=== PATIENT | male | born 1955 | race Caucasian/White ===

== ENCOUNTER 2019-09-25 15:13 | Inpatient (IN) | payer MEDICAID ==
[2019-09-25] MEDS ORDERED: HYDROmorphone 0.5 MG/0.5 ML Syringe IVPUSH ONE (15:51)
[2019-09-25] MEDS ORDERED: Ondansetron 4 MG/2 ML SDV IVPUSH ONE (15:51)
[2019-09-25] MEDS ORDERED: Sodium Chloride 0.9% 1,000 ML IV SCH (16:00)
[2019-09-25] MEDS ORDERED: Phenazopyridine 95 MG Tab PO ONE (16:16)
[2019-09-25] MEDS ORDERED: cefTRIAXone 1 GM in Sodium Chloride 0.9% 50 ML IV ONE (16:17)
--- NOTE | 2019-09-25 16:23 | EDM.PDOC ---
ED HPI GENERAL MEDICAL PROBLEM - General Chief Complaint: Gastrointestinal Problem Stated Complaint: THROWING UP Time Seen by Provider: 09/25/19 16:18 Source of Information: Reports: Patient, Family History Limitations: Reports: No Limitations - History of Present Illness INITIAL COMMENTS - FREE TEXT/NARRATIVE: pt is going freqently t urinate. He is burning on urination. He has been chilling but did not have a definite temp taken. Onset: Today Duration: Hour(s): Location: Reports: Abdomen, Other ( burning on urination) Associated Symptoms: Reports: Shortness of Breath, Weakness Headache Pain Score (Numeric/FACES): 9 Lower Back Pain Score (Numeric/FACES): 0 - Related Data Allergies Allergy/AdvReac Type Severity Reaction Status Date / Time No Known Allergies Allergy Verified 09/25/19 15:31 Home Meds: Home Meds Cholecalciferol (Vitamin D3) [Vitamin D] 2,000 unit PO DAILY 07/16/14 [History] Diltiazem HCl [Diltiazem 24Hr Cd] 240 mg PO DAILY 07/16/14 [History] FLUoxetine [PROzac] 20 mg PO DAILY 07/16/14 [History] Lisinopril 40 mg PO DAILY 07/16/14 [History] Omeprazole [Prilosec] 20 mg PO DAILY 07/16/14 [History] Vitamin E 200 unit PO DAILY 07/16/14 [History] Glucosam/Chond/Collagen/Hyalur [Glucosamine Chondroitin] 2 tab PO BID 07/19/14 [ History] [place]-3 Fatty Acids [Fish Oil] 1,000 mg PO DAILY 07/19/14 [History] Gabapentin [Gralise] 600 mg PO QAM 07/15/15 [History] atorvaSTATin Calcium [Atorvastatin Calcium] 1 tab PO BEDTIME 02/28/18 [History] rOPINIRole HCl [Requip] 0.5 mg PO DAILY 02/28/18 [History] Aspirin 81 mg PO DAILY 09/25/19 [History] Etodolac [Lodine] 500 mg PO BID 09/25/19 [History] Gabapentin [Neurontin] 1,200 mg PO BID 09/25/19 [History] Liraglutide [Victoza 3-Parag] 1.2 mg SUBCUT DAILY 09/25/19 [History] Nitroglycerin [Nitrostat] 0.4 mg SL ASDIRECTED PRN 09/25/19 [History] Potassium Gluconate [Potassium] 99 mg PO DAILY 09/25/19 [History] Triamcinolone Acetonide [Triamcinolone Acetonide 0.025%] 1 applic TOP BID PRN [History] metFORMIN HCl [Metformin HCl] 1,000 mg PO BIDAC 09/25/19 [History] Past Medical History HEENT History: Reports: Other (See Below) Other HEENT History: sleep apnea, uses cpap Cardiovascular History: Reports: Arrhythmia, Hypertension Other Cardiovascular History: flutter Respiratory History: Reports: Sleep Apnea Gastrointestinal History: Reports: GERD, Other (See Below) Other Gastrointestinal History: liver enzymes up Genitourinary History: Reports: Renal Calculus Musculoskeletal History: Reports: Arthritis, Back Pain, Chronic, Neck Pain, Chronic, Osteoarthritis, Other (See Below) Other Musculoskeletal History: carpal tunnel. degenerative lumbar and cervicle Neurological History: Reports: Other (See Below) Psychiatric History: Reports: Depression Endocrine/Metabolic History: Reports: Diabetes, Type II, Obesity/BMI 30+ Dermatologic History: Reports: Psoriasis - Infectious Disease History Infectious Disease History: Reports: Chicken Pox, Measles, Mumps - Past Surgical History Cardiovascular Surgical History: Reports: Other (See Below) Other Cardiovascular Surgeries/Procedures: ablasion GI Surgical History: Reports: Hernia Repair/Other Social & Family History - Tobacco Use Smoking Status *Q: Never Smoker - Caffeine Use Caffeine Use: Reports: Coffee - Recreational Drug Use Recreational Drug Use: No ED ROS GENERAL - Review of Systems Review Of Systems: See Below Constitutional: Reports: Fever, Chills, Malaise HEENT: Reports: No Symptoms Respiratory: Reports: Shortness of Breath Cardiovascular: Reports: No Symptoms Endocrine: Reports: Other (pt has been running sugars in the 150 range. d) GI/Abdominal: Reports: No Symptoms : Reports: Dysuria, Frequency, Hematuria, Pain, Urgency Musculoskeletal: Reports: No Symptoms Skin: Reports: No Symptoms ED EXAM, GI/ABD - Physical Exam Exam: See Below Text/Narrative:: pt arrived chilling and having alot of dysuria. Exam Limited By: No Limitations General Appearance: Alert, Anxious, Moderate Distress, Other ( sweaty/ ) Ears: Normal TMs Nose: Normal Inspection Throat/Mouth: Normal Inspection Head: Atraumatic Neck: Normal Inspection Respiratory/Chest: No Respiratory Distress Cardiovascular: Regular Rate, Rhythm, Tachycardia GI/Abdominal Exam: Soft, Non-Tender, Other (mild tenderness over the bladder. ) (Male) Exam: Deferred Rectal (Males) Exam: Deferred Back Exam: Normal Inspection Extremities: Normal Inspection Neurological: Alert, Oriented, Normal Cognition Course - Vital Signs Last Recorded V/S: Last Vital Signs Temp 37.4 C 09/28/19 04:00 Pulse 67 09/28/19 04:00 Resp 18 09/28/19 04:00 BP 140/60 09/28/19 04:00 Pulse Ox 95 09/28/19 04:00 - Orders/Labs/Meds Orders: Medication Orders Acetaminophen (Tylenol) 650 mg PO Q4H PRN PRN Reason: Pain (Mild 1-3)/fever Last Admin: 09/27/19 21:16 Dose: 650 mg Admin: 09/27/19 16:19 Dose: 650 mg Admin: 09/27/19 11:19 Dose: 650 mg Admin: 09/27/19 02:56 Dose: 650 mg Admin: 09/26/19 18:09 Dose: 650 mg Admin: 09/26/19 14:46 Dose: 650 mg Admin: 09/26/19 00:18 Dose: 650 mg Admin: 09/25/19 18:30 Dose: 650 mg Aspirin (Halfprin) 81 mg PO DAILY [facility] Last Admin: 09/27/19 08:52 Dose: 81 mg Admin: 09/26/19 08:31 Dose: 81 mg Atorvastatin Calcium (Lipitor) 20 mg PO BEDTIME [facility] Last Admin: 09/27/19 21:16 Dose: 20 mg Admin: 09/26/19 21:27 Dose: 20 mg Admin: 09/25/19 21:29 Dose: 20 mg Fluoxetine HCl (Prozac) 20 mg PO DAILY [facility] Last Admin: 09/27/19 08:52 Dose: 20 mg Admin: 09/26/19 08:32 Dose: 20 mg Gabapentin (Neurontin) 600 mg PO DAILY@0800 [facility] Last Admin: 09/27/19 07:49 Dose: 600 mg Admin: 09/26/19 08:30 Dose: 600 mg Gabapentin (Neurontin) 1,200 mg PO BID@1400,2100 [facility] Last Admin: 09/27/19 21:16 Dose: 1,200 mg Admin: 09/27/19 14:00 Dose: 1,200 mg Admin: 09/26/19 21:28 Dose: 1,200 mg Admin: 09/26/19 14:39 Dose: 1,200 mg Admin: 09/25/19 21:29 Dose: 1,200 mg Ceftriaxone Sodium 2 gm/ (Sodium Chloride) 50 mls @ 100 mls/hr IV Q24H [facility] Last Admin: 09/27/19 16:19 Dose: 100 mls/hr Admin: 09/26/19 16:20 Dose: 100 mls/hr Sodium Chloride (Normal Saline) 1,000 mls @ 75 mls/hr IV ASDIRECTED [facility] Last Admin: 09/27/19 22:12 Dose: 75 mls/hr Infusion: 09/27/19 21:04 Dose: 75 mls/hr Admin: 09/27/19 07:44 Dose: 75 mls/hr Infusion: 09/27/19 01:02 Dose: 75 mls/hr Admin: 09/26/19 11:42 Dose: 75 mls/hr Ciprofloxacin/Dextrose 400 mg/ (Premix) 200 mls @ 200 mls/hr IV Q12H [facility] Last Admin: 09/28/19 05:03 Dose: 200 mls/hr Infusion: 09/27/19 18:56 Dose: 200 mls/hr Admin: 09/27/19 17:56 Dose: 200 mls/hr Infusion: 09/27/19 06:09 Dose: 200 mls/hr Admin: 09/27/19 05:09 Dose: 200 mls/hr Infusion: 09/26/19 19:11 Dose: 200 mls/hr Admin: 09/26/19 18:11 Dose: 200 mls/hr Sodium Chloride (Normal Saline) 85 mls @ 3.5 mls/sec IV ASDIRECTED [facility] Last Admin: 09/27/19 10:27 Dose: 3.5 mls/sec Lactobacillus Rhamnosus (Culturelle) 1 cap PO BID [facility] Last Admin: 09/27/19 21:15 Dose: 1 cap Admin: 09/27/19 08:52 Dose: 1 cap Admin: 09/26/19 21:27 Dose: 1 cap Admin: 09/26/19 08:31 Dose: 1 cap Admin: 09/25/19 21:29 Dose: 1 cap Liraglutide (Victoza) 1.2 mg SUBCUT DAILY [facility] Last Admin: 09/27/19 08:53 Dose: 1.2 mg Admin: 09/26/19 08:32 Dose: 1.2 units Lorazepam (Ativan) 0.5 mg IVPUSH Q4H PRN PRN Reason: Nausea/Vomiting Magnesium Hydroxide (Milk Of Magnesia) 30 ml PO Q12H PRN PRN Reason: Constipation Melatonin (Melatonin) 9 mg PO BEDTIME PRN PRN Reason: Sleep Last Admin: 09/25/19 21:29 Dose: 9 mg Metformin HCl (Glucophage) 1,000 mg PO BIDAC [facility] Last Admin: 09/27/19 16:20 Dose: 1,000 mg Admin: 09/27/19 07:49 Dose: 1,000 mg Admin: 09/26/19 18:10 Dose: 1,000 mg Admin: 09/26/19 08:30 Dose: 1,000 mg Ondansetron HCl (Zofran Odt) 4 mg PO Q6H PRN PRN Reason: Nausea able to take PO Last Admin: 09/27/19 21:21 Dose: 4 mg Ondansetron HCl (Zofran) 4 mg IV Q6H PRN PRN Reason: Nausea/Vomiting Last Admin: 09/27/19 02:54 Dose: 4 mg Oxycodone HCl (Oxycodone) 5 mg PO Q4H PRN PRN Reason: Pain (moderate 4-6) Last Admin: 09/27/19 21:16 Dose: 5 mg Admin: 09/26/19 00:19 Dose: 5 mg Pantoprazole Sodium (Protonix) 40 mg PO ACBREAKFAST [facility] Last Admin: 09/27/19 07:49 Dose: 40 mg Admin: 09/26/19 08:31 Dose: 40 mg Ropinirole HCl (Requip) 0.5 mg PO BEDTIME [facility] Last Admin: 09/27/19 21:16 Dose: 0.5 mg Admin: 09/26/19 21:28 Dose: 0.5 mg Admin: 09/26/19 00:18 Dose: 0.5 mg Senna/Docusate Sodium (Senna Plus) 1 tab PO BID PRN PRN Reason: Constipation Zolpidem Tartrate (Ambien) 5 mg PO BEDTIME PRN PRN Reason: Sleep Last Admin: 09/27/19 21:16 Dose: 5 mg Admin: 09/26/19 21:27 Dose: 5 mg Labs: Laboratory Tests 09/25/19 09/25/19 09/25/19 Range/Units 15:28 15:30 15:30 WBC 22.4 H (4.5-11.0) K/uL RBC 4.35 (4.30-5.90) M/uL Hgb 13.7 (12.0-15.0) g/dL Hct 41.4 (40.0-54.0) % MCV 95 (80-98) fL MCH 32 H (27-31) pg MCHC 33 (32-36) % Plt Count 225 (150-400) K/uL Neut % (Auto) 78 H (36-66) % Lymph % (Auto) 9 L (24-44) % [place] % (Auto) 12 H (2-6) % Eos % (Auto) 0 L (2-4) % Baso % (Auto) 0 (0-1) % VBG pH (7.350-7.450) Sodium 137 L (140-148) mmol/L Potassium 4.6 (3.6-5.2) mmol/L Chloride 100 (100-108) mmol/L Carbon Dioxide 21 (21-32) mmol/L Anion Gap 20.6 H (5.0-14.0) mmol/L BUN 21 H (7-18) mg/dL Creatinine 1.4 H (0.8-1.3) mg/dL Est Cr Clr Drug Dosing 51.15 mL/min Estimated GFR (MDRD) 51 L (>60) Glucose 156 H (74-106) mg/dL Lactic Acid (0.4-2.0) mmol/L Calcium 9.2 (8.5-10.1) mg/dL Total Bilirubin 1.2 H (0.2-1.0) mg/dL AST 33 (15-37) U/L ALT 52 (12-78) U/L Alkaline Phosphatase 61 (46-116) U/L Total Protein 8.0 (6.4-8.2) g/dL Albumin 3.6 (3.4-5.0) g/dL Globulin 4.4 H (2.3-3.5) g/dL Albumin/Globulin Ratio 0.8 L (1.2-2.2) Urine Color Yellow (YELLOW) Urine Appearance Cloudy A (CLEAR) Urine pH 5.5 (5.0-8.0) Ur Specific [place] >= 1.030 (1.008-1.030) Urine Protein 100 H (NEGATIVE) mg/dL Urine Glucose (UA) Negative (NEGATIVE) mg/dL Urine Ketones 15 H (NEGATIVE) mg/dL Urine Occult Blood Moderate H (NEGATIVE) Urine Nitrite Positive H (NEGATIVE) Urine Bilirubin Large H (NEGATIVE) Urine Urobilinogen 0.2 (0.2-1.0) EU/dL Ur Leukocyte Esterase Small H (NEGATIVE) Urine RBC 10-20 H (0-5) Urine WBC Packed H (0-5) Ur Epithelial Cells Few Amorphous Sediment Not seen Urine Bacteria Many Urine Mucus Few 09/25/19 09/25/19 Range/Units 15:30 15:50 WBC (4.5-11.0) K/uL RBC (4.30-5.90) M/uL Hgb (12.0-15.0) g/dL Hct (40.0-54.0) % MCV (80-98) fL MCH (27-31) pg MCHC (32-36) % Plt Count (150-400) K/uL Neut % (Auto) (36-66) % Lymph % (Auto) (24-44) % [place] % (Auto) (2-6) % Eos % (Auto) (2-4) % Baso % (Auto) (0-1) % VBG pH 7.413 (7.350-7.450) Sodium (140-148) mmol/L Potassium (3.6-5.2) mmol/L Chloride (100-108) mmol/L Carbon Dioxide (21-32) mmol/L Anion Gap (5.0-14.0) mmol/L BUN (7-18) mg/dL Creatinine (0.8-1.3) mg/dL Est Cr Clr Drug Dosing mL/min Estimated GFR (MDRD) (>60) Glucose (74-106) mg/dL Lactic Acid 3.4 H (0.4-2.0) mmol/L Calcium (8.5-10.1) mg/dL Total Bilirubin (0.2-1.0) mg/dL AST (15-37) U/L ALT (12-78) U/L Alkaline Phosphatase (46-116) U/L Total Protein (6.4-8.2) g/dL Albumin (3.4-5.0) g/dL Globulin (2.3-3.5) g/dL Albumin/Globulin Ratio (1.2-2.2) Urine Color (YELLOW) Urine Appearance (CLEAR) Urine pH (5.0-8.0) Ur Specific [place] (1.008-1.030) Urine Protein (NEGATIVE) mg/dL Urine Glucose (UA) (NEGATIVE) mg/dL Urine Ketones (NEGATIVE) mg/dL Urine Occult Blood (NEGATIVE) Urine Nitrite (NEGATIVE) Urine Bilirubin (NEGATIVE) Urine Urobilinogen (0.2-1.0) EU/dL Ur Leukocyte Esterase (NEGATIVE) Urine RBC (0-5) Urine WBC (0-5) Ur Epithelial Cells Amorphous Sediment Urine Bacteria Urine Mucus Meds: Medications Generic Name Dose Route Start Last Admin Trade Name Freq PRN Reason Stop Dose Admin Acetaminophen 650 mg 09/25/19 17:43 09/27/19 21:16 Tylenol PO 650 mg Q4H PRN Administration Pain (Mild 1-3)/fever Aspirin 81 mg 09/26/19 09:00 09/27/19 08:52 Halfprin PO 81 mg DAILY [facility] Administration Atorvastatin Calcium 20 mg 09/25/19 21:00 09/27/19 21:16 Lipitor PO 20 mg BEDTIME [facility] Administration Fluoxetine HCl 20 mg 09/26/19 09:00 09/27/19 08:52 Prozac PO 20 mg DAILY [facility] Administration Gabapentin 600 mg 09/26/19 08:00 09/27/19 07:49 Neurontin PO 600 mg DAILY@0800 [facility] Administration Gabapentin 1,200 mg 09/25/19 21:00 09/27/19 21:16 Neurontin PO 1,200 mg BID@1400,2100 [facility] Administration Ceftriaxone Sodium 2 gm/ 50 mls @ 100 mls/hr 09/26/19 16:00 09/27/19 16:19 Sodium Chloride IV 100 mls/hr Q24H [facility] Administration Sodium Chloride 1,000 mls @ 75 mls/hr 09/26/19 12:00 09/27/19 22:12 Normal Saline IV 75 mls/hr ASDIRECTED [facility] Administration Ciprofloxacin/Dextrose 400 mg/ 200 mls @ 200 mls/hr 09/26/19 17:00 09/28/19 05:03 Premix IV 200 mls/hr Q12H [facility] Administration Sodium Chloride 85 mls @ 3.5 mls/sec 09/27/19 10:00 09/27/19 10:27 Normal Saline IV 3.5 mls/sec ASDIRECTED [facility] Administration Lactobacillus Rhamnosus 1 cap 09/25/19 21:00 09/27/19 21:15 Culturelle PO 1 cap BID [facility] Administration Liraglutide 1.2 mg 09/26/19 09:00 09/27/19 08:53 Victoza SUBCUT 1.2 mg DAILY [facility] Administration Lorazepam 0.5 mg 09/25/19 17:43 Ativan IVPUSH Q4H PRN Nausea/Vomiting Magnesium Hydroxide 30 ml 09/25/19 17:43 Milk Of Magnesia PO Q12H PRN Constipation Melatonin 9 mg 09/25/19 20:25 09/25/19 21:29 Melatonin PO 9 mg BEDTIME PRN Administration Sleep Metformin HCl 1,000 mg 09/26/19 07:30 09/27/19 16:20 Glucophage PO 1,000 mg BIDAC [facility] Administration Ondansetron HCl 4 mg 09/25/19 17:43 09/27/19 21:21 Zofran Odt PO 4 mg Q6H PRN Administration Nausea able to take PO Ondansetron HCl 4 mg 09/25/19 17:43 09/27/19 02:54 Zofran IV 4 mg Q6H PRN Administration Nausea/Vomiting Oxycodone HCl 5 mg 09/25/19 17:43 09/27/19 21:16 Oxycodone PO 5 mg Q4H PRN Administration Pain (moderate 4-6) Pantoprazole Sodium 40 mg 09/26/19 07:30 09/27/19 07:49 Protonix PO 40 mg ACBREAKFAST [facility] Administration Ropinirole HCl 0.5 mg 09/26/19 00:15 09/27/19 21:16 Requip PO 0.5 mg BEDTIME [facility] Administration Senna/Docusate Sodium 1 tab 09/25/19 17:43 Senna Plus PO BID PRN Constipation Zolpidem Tartrate 5 mg 09/26/19 13:06 09/27/19 21:16 Ambien PO 5 mg BEDTIME PRN Administration Sleep Discontinued Medications Generic Name Dose Route Start Last Admin Trade Name Jonathon PRN Reason Stop Dose Admin Hydromorphone HCl 0.5 mg 09/25/19 15:51 09/25/19 16:13 Dilaudid IVPUSH 09/25/19 15:52 0.5 mg ONETIME ONE Administration Sodium Chloride 1,000 mls @ 999 mls/hr 09/25/19 16:00 09/25/19 16:11 Normal Saline IV 999 mls/hr ASDIRECTED [facility] Administration Ceftriaxone Sodium 1 gm/ 50 mls @ 100 mls/hr 09/25/19 16:17 09/25/19 16:32 Sodium Chloride IV 09/25/19 16:46 100 mls/hr ONETIME ONE Administration Lactated Ringer's 1,000 mls @ 999 mls/hr 09/25/19 17:15 09/25/19 18:04 Ringers, Lactated IV 09/25/19 18:16 999 mls/hr ASDIRECTED [facility] Administration Ceftriaxone Sodium 1 gm/ 50 mls @ 100 mls/hr 09/26/19 04:00 09/26/19 04:58 Sodium Chloride IV 09/26/19 04:29 100 mls/hr ONETIME ONE Administration Sodium Chloride 1,000 mls @ 125 mls/hr 09/25/19 17:43 09/26/19 02:49 Normal Saline IV 125 mls/hr ASDIRECTED [facility] Administration Insulin Human Lispro 0 unit 09/25/19 20:00 09/26/19 16:47 Humalog SUBCUT Not Given QIDACANDBED [facility] Protocol Iopamidol 150 ml 09/27/19 09:57 09/27/19 10:26 Isovue-300 (61%) IV 09/27/19 09:58 150 ml ONETIME ONE Administration Ketorolac Tromethamine 30 mg 09/26/19 16:05 09/26/19 16:20 Toradol IVPUSH 09/26/19 16:06 30 mg ONETIME ONE Administration Ondansetron HCl 4 mg 09/25/19 15:51 09/25/19 16:12 Zofran IVPUSH 09/25/19 15:52 4 mg ONETIME ONE Administration Phenazopyridine HCl 190 mg 09/25/19 16:16 09/25/19 16:32 Urinary Pain Relief PO 09/25/19 16:17 190 mg ONETIME ONE Administration Ropinirole HCl 0.5 mg 09/26/19 09:00 Requip PO DAILY [facility] - Re-Assessments/Exams Free Text/Narrative Re-Assessment/Exam: 09/25/19 16:28 pt was just in [place] to see the liver specialist because of a fatty liver. He has had burning on urination for several days. It has been much worse today. 09/25/19 16:29 His wbc is 22,000. His urine is very infected. Pt is septic His lactic acid is elevated. . Departure - Departure Time of Disposition: 16:30 Disposition: Admitted As Inpatient 68 Condition: Fair Clinical Impression: UTI (urinary tract infection), Elevated lactic acid level, Dehydration Sepsis Qualifiers: Sepsis type: sepsis due to unspecified organism Sepsis acute organ dysfunction status: without acute organ dysfunction Qualified Code(s): A41.9 - Sepsis, unspecified organism - Discharge Information Sepsis Event Note - Evaluation Sepsis Screening Result: Possible Sepsis Risk - Focused Exam Date Exam was Performed: 09/28/19 Time Exam was Performed: 07:13
[2019-09-25] MEDS ORDERED: Lactated Ringers 1,000 ML IV SCH (17:15)
--- NOTE | 2019-09-25 17:25 | PCM.HP.2 ---
H&P History of Present Illness - General Date of Service: 09/25/19 Admit Problem/Dx: Admission Diagnosis/Problem Admission Diagnosis/Problem Acute cystitis without hematuria Source of Information: Patient, Family, Provider History Limitations: Reports: No Limitations - History of Present Illness Initial Comments - Free Text/Narative: CC: My penis was burning HPI: Usama presents to the emergency room today with dysuria, fever, chills and nausea with vomiting. He first noticed a fever about 48 hours ago. He had associated shaking chills but no impressive symptoms at that time otherwise. The next morning he developed mild dysuria as well as frequent but small quantity urination. Symptoms progressed over the next 24 hours with worsening dysuria and even smaller quantities of urine were passed. He had some episodes of chilling but no obvious fevers. He developed intermittent nausea with vomiting. He has not had anything to eat in 24 hours. Oral intake has been dramatically reduced compared to baseline. He has had significant fatigue over the past 24 hours. No complaints of abdominal pain. He does feel short of breath but thinks it is mostly because he still tired from the infection. No complaints of headache. He does have a history of a kidney stone that required lithotripsy but this feels much different. No change in bowel habits. No obvious sick contacts. Work-up in the emergency room was suggestive of sepsis secondary to a urinary tract infection. He is dehydrated and has mild acute kidney injury. He has received antibiotics and fluids and will be admitted for further management. Headache Pain Score (Numeric/FACES): 9 - Related Data Allergies/Adverse Reactions: Allergies Allergy/AdvReac Type Severity Reaction Status Date / Time No Known Allergies Allergy Verified 09/25/19 15:31 Home Medications: Home Meds Cholecalciferol (Vitamin D3) [Vitamin D] 2,000 unit PO DAILY 07/16/14 [History] Diltiazem HCl [Diltiazem 24Hr Cd] 240 mg PO DAILY 07/16/14 [History] FLUoxetine [PROzac] 20 mg PO DAILY 07/16/14 [History] Lisinopril 40 mg PO DAILY 07/16/14 [History] Omeprazole [Prilosec] 20 mg PO DAILY 07/16/14 [History] Vitamin E 200 unit PO DAILY 07/16/14 [History] Glucosam/Chond/Collagen/Hyalur [Glucosamine Chondroitin] 2 tab PO BID 12/22/14 [ History] D Hanis-3 Fatty Acids [Fish Oil] 1,000 mg PO DAILY 07/19/14 [History] Gabapentin [Gralise] 600 mg PO QAM 07/15/15 [History] atorvaSTATin Calcium [Atorvastatin Calcium] 1 tab PO BEDTIME 02/28/18 [History] rOPINIRole HCl [Requip] 0.5 mg PO DAILY 02/28/18 [History] Aspirin 81 mg PO DAILY 09/25/19 [History] Etodolac [Lodine] 500 mg PO BID 09/25/19 [History] Gabapentin [Neurontin] 1,200 mg PO BID 09/25/19 [History] Liraglutide [Victoza 3-Parag] 1.2 mg SUBCUT DAILY 09/25/19 [History] Nitroglycerin [Nitrostat] 0.4 mg SL ASDIRECTED PRN 09/25/19 [History] Potassium Gluconate [Potassium] 99 mg PO DAILY 09/25/19 [History] Triamcinolone Acetonide [Triamcinolone Acetonide 0.025%] 1 applic TOP BID PRN [History] metFORMIN HCl [Metformin HCl] 1,000 mg PO BIDAC 09/25/19 [History] Past Medical History HEENT History: Reports: Other (See Below) Other HEENT History: sleep apnea, uses cpap Cardiovascular History: Reports: Arrhythmia, Hypertension Other Cardiovascular History: flutter Respiratory History: Reports: Sleep Apnea Gastrointestinal History: Reports: GERD, Other (See Below) Other Gastrointestinal History: liver enzymes up Genitourinary History: Reports: Renal Calculus Musculoskeletal History: Reports: Arthritis, Back Pain, Chronic, Neck Pain, Chronic, Osteoarthritis, Other (See Below) Other Musculoskeletal History: carpal tunnel. degenerative lumbar and cervicle Neurological History: Reports: Other (See Below) Psychiatric History: Reports: Depression Endocrine/Metabolic History: Reports: Diabetes, Type II, Obesity/BMI 30+ Dermatologic History: Reports: Psoriasis - Infectious Disease History Infectious Disease History: Reports: Chicken Pox, Measles, Mumps - Past Surgical History Cardiovascular Surgical History: Reports: Other (See Below) Other Cardiovascular Surgeries/Procedures: ablasion GI Surgical History: Reports: Hernia Repair/Other Social & Family History - Family History : Reports: Renal Calculus (Brother) - Tobacco Use Smoking Status *Q: Never Smoker - Caffeine Use Caffeine Use: Reports: Coffee - Recreational Drug Use Recreational Drug Use: No H&P Review of Systems - Review of Systems: Review Of Systems: See Below Free Text/Narrative: A complete 12 point review of systems was obtained. Pertinent positives and negatives are noted in the history of present illness. All other systems were reviewed and were negative except as noted. Exam - Exam Exam: See Below - Vital Signs Vital Signs: Last Vital Signs Temp 37.9 C 09/25/19 15:39 Pulse 116 H 09/25/19 15:39 Resp 22 H 09/25/19 15:39 BP 151/62 H 09/25/19 15:39 Pulse Ox 94 L 09/25/19 15:39 Weight: 148 kg - Exam Quality Assessment: No: Supplemental Oxygen General: Alert, Oriented, Cooperative. No: Mild Distress HEENT: Conjunctiva Clear. No: Mucosa Moist & Funk (dry), Scleral Icterus Neck: Supple, Trachea Midline. No: Lymphadenopathy Lungs: Clear to Auscultation, Normal Respiratory Effort Cardiovascular: Regular Rhythm, Tachycardia. No: Systolic Murmur GI/Abdominal Exam: Normal Bowel Sounds, Soft, No Distention, Tender (Mild epigastric) Back Exam: Normal Inspection, Full Range of Motion Extremities: No Pedal Edema. No: Increased Warmth Peripheral Pulses: 1+: Dorsalis Pedis (L), Dorsalis Pedis (R) Skin: Warm, Dry Neuro Extensive - Mental Status: Alert, Oriented x3, Nl Response to Commands Neuro Extensive - Motor, Sensory, Reflexes: No: Dysarthria, Abnormal Motor, Tremor Psychiatric: Alert, Normal Affect - Patient Data Lab Results Last 24 hrs: Laboratory Results - last 24 hr 09/25/19 09/25/19 09/25/19 Range/Units 15:28 15:30 15:30 WBC 22.4 H (4.5-11.0) K/uL RBC 4.35 (4.30-5.90) M/uL Hgb 13.7 (12.0-15.0) g/dL Hct 41.4 (40.0-54.0) % MCV 95 (80-98) fL MCH 32 H (27-31) pg MCHC 33 (32-36) % Plt Count 225 (150-400) K/uL Neut % (Auto) 78 H (36-66) % Lymph % (Auto) 9 L (24-44) % [place] % (Auto) 12 H (2-6) % Eos % (Auto) 0 L (2-4) % Baso % (Auto) 0 (0-1) % VBG pH (7.350-7.450) Sodium 137 L (140-148) mmol/L Potassium 4.6 (3.6-5.2) mmol/L Chloride 100 (100-108) mmol/L Carbon Dioxide 21 (21-32) mmol/L Anion Gap 20.6 H (5.0-14.0) mmol/L BUN 21 H (7-18) mg/dL Creatinine 1.4 H (0.8-1.3) mg/dL Est Cr Clr Drug Dosing 51.15 mL/min Estimated GFR (MDRD) 51 L (>60) Glucose 156 H (74-106) mg/dL Lactic Acid (0.4-2.0) mmol/L Calcium 9.2 (8.5-10.1) mg/dL Total Bilirubin 1.2 H (0.2-1.0) mg/dL AST 33 (15-37) U/L ALT 52 (12-78) U/L Alkaline Phosphatase 61 (46-116) U/L Total Protein 8.0 (6.4-8.2) g/dL Albumin 3.6 (3.4-5.0) g/dL Globulin 4.4 H (2.3-3.5) g/dL Albumin/Globulin Ratio 0.8 L (1.2-2.2) Urine Color Yellow (YELLOW) Urine Appearance Cloudy A (CLEAR) Urine pH 5.5 (5.0-8.0) Ur Specific [place] >= 1.030 (1.008-1.030) Urine Protein 100 H (NEGATIVE) mg/dL Urine Glucose (UA) Negative (NEGATIVE) mg/dL Urine Ketones 15 H (NEGATIVE) mg/dL Urine Occult Blood Moderate H (NEGATIVE) Urine Nitrite Positive H (NEGATIVE) Urine Bilirubin Large H (NEGATIVE) Urine Urobilinogen 0.2 (0.2-1.0) EU/dL Ur Leukocyte Esterase Small H (NEGATIVE) Urine RBC 10-20 H (0-5) Urine WBC Packed H (0-5) Ur Epithelial Cells Few Amorphous Sediment Not seen Urine Bacteria Many Urine Mucus Few 09/25/19 09/25/19 Range/Units 15:30 15:50 WBC (4.5-11.0) K/uL RBC (4.30-5.90) M/uL Hgb (12.0-15.0) g/dL Hct (40.0-54.0) % MCV (80-98) fL MCH (27-31) pg MCHC (32-36) % Plt Count (150-400) K/uL Neut % (Auto) (36-66) % Lymph % (Auto) (24-44) % [place] % (Auto) (2-6) % Eos % (Auto) (2-4) % Baso % (Auto) (0-1) % VBG pH 7.413 (7.350-7.450) Sodium (140-148) mmol/L Potassium (3.6-5.2) mmol/L Chloride (100-108) mmol/L Carbon Dioxide (21-32) mmol/L Anion Gap (5.0-14.0) mmol/L BUN (7-18) mg/dL Creatinine (0.8-1.3) mg/dL Est Cr Clr Drug Dosing mL/min Estimated GFR (MDRD) (>60) Glucose (74-106) mg/dL Lactic Acid 3.4 H (0.4-2.0) mmol/L Calcium (8.5-10.1) mg/dL Total Bilirubin (0.2-1.0) mg/dL AST (15-37) U/L ALT (12-78) U/L Alkaline Phosphatase (46-116) U/L Total Protein (6.4-8.2) g/dL Albumin (3.4-5.0) g/dL Globulin (2.3-3.5) g/dL Albumin/Globulin Ratio (1.2-2.2) Urine Color (YELLOW) Urine Appearance (CLEAR) Urine pH (5.0-8.0) Ur Specific [place] (1.008-1.030) Urine Protein (NEGATIVE) mg/dL Urine Glucose (UA) (NEGATIVE) mg/dL Urine Ketones (NEGATIVE) mg/dL Urine Occult Blood (NEGATIVE) Urine Nitrite (NEGATIVE) Urine Bilirubin (NEGATIVE) Urine Urobilinogen (0.2-1.0) EU/dL Ur Leukocyte Esterase (NEGATIVE) Urine RBC (0-5) Urine WBC (0-5) Ur Epithelial Cells Amorphous Sediment Urine Bacteria Urine Mucus Result Diagrams: 09/25/19 15:30 09/25/19 15:30 Imaging Impressions Last 24 hrs: Chest x-ray-image personally reviewed-lungs are clear with no mass, infiltrate or effusion. Heart size appears normal. Sepsis Event Note - Evaluation Sepsis Screening Result: Possible Sepsis Risk Current Stage of Sepsis: Sepsis Possible Source of Sepsis: Genitourinary - Focused Exam Sepsis Event Note Statement: Focused Sepsis Exam Completed Vital Signs: Vital Signs Temp Pulse Resp BP Pulse Ox 09/25/19 15:39 37.9 C 116 H 22 H 151/62 H 94 L 09/25/19 15:28 37.9 C 116 H 22 H 151/62 H 94 L Respiratory Effort Without Exertion: Other (see below) (Normal) Heart Sounds: Other (see below) (Tachycardia) Capillary Refill, Detail: Less than/Equal to (</=) 2 Seconds Pulse Description: 1+ Thready Peripheral Pulse Location: Dorsalis Pedis Skin Exam (Focused Sepsis): Normal Turgor Date Exam was Performed: 09/25/19 Time Exam was Performed: 17:24 *Q Meaningful Use (ADM) - VTE Risk Assess *Q Each Risk Factor Represents 1 Point: Obesity ( BMI > 25 kg/m2), Sepsis Total Score 1 Point Risk Factors: 2 Each Risk Factor Represents 2 Points: Age 60 - 74 Years Total Score 2 Point Risk Factors: 2 Each Risk Factor Represents 3 Points: None Total Score 3 Point Risk Factors: 0 Each Risk Factor Represents 5 Points: None Total Score 5 Point Risk Factors: 0 Venous Thromboembolism Risk Factor Score *Q: 4 - Problem List (1) Acute cystitis without hematuria SNOMED Code(s): 53020962 ICD Code: N30.00 - ACUTE CYSTITIS WITHOUT HEMATURIA Status: Acute Current Visit: Yes (2) Sepsis SNOMED Code(s): 37812407 ICD Code: A41.9 - SEPSIS, UNSPECIFIED ORGANISM Status: Acute Current Visit: Yes Qualifiers: Sepsis type: sepsis due to unspecified organism Sepsis acute organ dysfunction status: without acute organ dysfunction Qualified Code(s): A41.9 - Sepsis, unspecified organism (3) Type 2 diabetes mellitus, controlled SNOMED Code(s): 79975161, 731122966 ICD Code: E11.9 - TYPE 2 DIABETES MELLITUS WITHOUT COMPLICATIONS Status: Chronic Current Visit: Yes Qualifiers: Diabetes mellitus manager terminal insulin use: without usp use Diabetes mellitus complication status: with neurologic complications Diabetes mellitus complication detail: with polyneuropathy Qualified Code(s): E11.42 - Type 2 diabetes mellitus with diabetic polyneuropathy (4) Essential hypertension SNOMED Code(s): 18871246 ICD Code: I10 - ESSENTIAL (PRIMARY) HYPERTENSION Status: Chronic Current Visit: Yes (5) Morbid obesity with BMI of 50.0-59.9, adult SNOMED Code(s): 035774526, 19038050747560 ICD Code: E66.01 - MORBID (SEVERE) OBESITY DUE TO EXCESS CALORIES; Z68.43 - BODY MASS INDEX (BMI) 50.0-59.9, ADULT Status: Chronic Current Visit: Yes Problem List Initiated/Reviewed/Updated: Yes Orders Last 24hrs: Active Orders 24 hr Category Date Time Status Patient Status Manage Transfer [TRANSFER] Routine ADT 09/25/19 17:09 Ordered Bladder Scan [RC] ASDIRECTED Care 09/25/19 15:30 Active Chest 1V Frontal [CR] Stat Exams 09/25/19 16:19 Taken CULTURE BLOOD [BC] Urgent Lab 09/25/19 16:00 Received CULTURE BLOOD [BC] Urgent Lab 09/25/19 16:05 Received CULTURE URINE [RM] Stat Lab 09/25/19 16:00 Received Lactated Ringers [Ringers, Lactated] 1,000 ml Med 09/25/19 17:15 Active IV ASDIRECTED Sodium Chloride 0.9% [Normal Saline] 1,000 ml Med 09/25/19 16:00 Active IV ASDIRECTED Blood Culture x2 Reflex Set [OM.PC] Urgent Oth 09/25/19 15:50 Ordered Resuscitation Status Routine Resus Stat 09/25/19 17:12 Ordered Medication Orders Sodium Chloride (Normal Saline) 1,000 mls @ 999 mls/hr IV ASDIRECTED SARA Last Admin: 09/25/19 16:11 Dose: 999 mls/hr Lactated Ringer's (Ringers, Lactated) 1,000 mls @ 999 mls/hr IV ASDIRECTED SARA Stop: 09/25/19 18:16 Assessment/Plan Comment:: ASSESSMENT AND PLAN - Acute cystitis without hematuria-complicated by sepsis and dehydration. Evidence for sepsis includes tachycardia and lactic acidosis. 1 previous urinary tract infection associated with a kidney stone but this feels much different. Cultures have been obtained and broad-spectrum antibiotics administered. He is receiving IV fluids. I suspect his recent hyperglycemia led to the urinary tract infection. -Continue IV fluids -Ceftriaxone 1 g in 12 hours and then 2 g every 24 hours -Pain control -Repeat lactic acid this evening -follow-up cultures Type 2 diabetes mellitus-recent increase in medications but this has been fairly well controlled. Blood sugars a little higher in the setting of infection. -Restart metformin tomorrow once lactic acidosis resolves -Continue liraglutide -Sliding scale insulin Essential hypertension-blood pressure normal at this time but I am nervous his blood pressure may drop with sepsis. I am planning to hold his antihypertensives until blood pressure rises. -Hold lisinopril and diltiazem Morbid obesity-BMI greater than 50. Maintenance issues - - DVT prophylaxis -mechanical - GI prophylaxis -PPI - Nutrition -clear liquids for tonight, advance diet once nausea settles down - Berg catheter -not indicated CODE STATUS -full code Admission justification -this patient will be admitted for inpatient services and is medically appropriate meeting medical necessity for inpatient admission as outlined in my documentation. I reasonably expect the patient will require inpatient services that span a period time over 2 midnights. I reasonably expect this patient to be discharged or transferred within 96 hours [facility]. Disposition -I would anticipate discharge home after the hospital stay Dr. Krueger Primary care physician - Atif Davis M.D. - Mortality Measure Prognosis:: Good
--- NOTE | 2019-09-25 17:27 | CRLCR ---
HISTORY: Shortness of breath. Elevated white count. COMPARISON: None available FINDINGS: A portable erect AP view of the chest was obtained at 17 15 hours. The lungs are clear. No focal or diffuse infiltrates are present. The heart is top-normal in size. The mediastinum is normal in appearance. The osseous structures are normal in appearance for the patient`s age. IMPRESSION: Normal portable chest single view. Dictated by Andrey Olivarez MD @ Sep 25 2019 5:24PM Signed by Dr. Andrey Olivarez @ Sep 25 2019 5:25PM
[2019-09-25] MEDS ORDERED: Ondansetron 4 MG Tab.DIS PO PRN (17:43)
[2019-09-25] MEDS ORDERED: LORazepam 2 MG/ML SDV IVPUSH PRN (17:43)
[2019-09-25] MEDS ORDERED: Ondansetron 4 MG/2 ML SDV IV PRN (17:43)
[2019-09-25] MEDS ORDERED: Magnesium Hydroxide 400 MG/5 ML Susp 30 ML Cup PO PRN (17:43)
[2019-09-25] MEDS: Acetaminophen 325 MG Tab PO PRN (18:30)
[2019-09-25] MEDS: Sodium Chloride 0.9% 1,000 ML IV SCH (19:09)
[2019-09-25] MEDS ORDERED: Melatonin 3 MG Tab PO PRN (20:25)
[2019-09-25] MEDS: Insulin Lispro 100 Unit/ML 3 ML KwikPen SUBCUT SCH (21:22)
[2019-09-25] MEDS: Lactobacillus Rhamnosus GG (Probiotic) Cap PO SCH (21:29)
[2019-09-25] MEDS: Gabapentin 400 MG Cap PO SCH (21:29)
[2019-09-25] MEDS: atorvaSTATin 20 MG Tab PO SCH (21:29)
[2019-09-26] MEDS: rOPINIRole 0.5 MG Tab PO SCH ×2 (00:18→21:28)
[2019-09-26] MEDS: Acetaminophen 325 MG Tab PO PRN ×3 (00:18→18:09)
[2019-09-26] MEDS: oxyCODONE 5 MG Tab PO PRN (00:19)
[2019-09-26] MEDS: Sodium Chloride 0.9% 1,000 ML IV SCH ×2 (02:49→11:42)
[2019-09-26] MEDS ORDERED: cefTRIAXone 1 GM in Sodium Chloride 0.9% 50 ML IV ONE (04:00)
[2019-09-26] MEDS: Insulin Lispro 100 Unit/ML 3 ML KwikPen SUBCUT SCH ×3 (08:26→16:47)
[2019-09-26] MEDS: metFORMIN 500 MG Tab PO SCH ×2 (08:30→18:10)
[2019-09-26] MEDS: Gabapentin 300 MG Cap PO SCH (08:30)
[2019-09-26] MEDS: Lactobacillus Rhamnosus GG (Probiotic) Cap PO SCH ×2 (08:31→21:27)
[2019-09-26] MEDS: Pantoprazole 40 MG Tab.CR PO SCH (08:31)
[2019-09-26] MEDS: Aspirin 81 MG Tab.EC PO SCH (08:31)
[2019-09-26] MEDS: Liraglutide (rDNA Origin) 0.6 MG/0.1 ML 3 ML Pen SUBCUT SCH (08:32)
[2019-09-26] MEDS: FLUoxetine 20 MG Cap PO SCH (08:32)
[2019-09-26] MEDS ORDERED: rOPINIRole 0.5 MG Tab PO SCH (09:00)
--- NOTE | 2019-09-26 11:25 | PCM.PN ---
- General Info Date of Service: 09/26/19 Subjective Update: No acute events overnight. No fevers overnight but he did have one early this afternoon. Still having difficulty with urinary urgency and some incontinence. No significant dysuria today. Nausea and vomiting are better. He was able to get in the shower. Appetite slightly better. Vital signs are stable. No abdominal pain. Functional Status: Reports: Pain Controlled, Tolerating Diet - Review of Systems General: Reports: Weakness, Fatigue. Denies: Fever Genitourinary: Reports: Urgency - Patient Data Vitals - Most Recent: Last Vital Signs Temp 36.6 C 09/26/19 08:12 Pulse 72 09/26/19 08:12 Resp 16 09/26/19 08:12 BP 114/60 09/26/19 08:12 Pulse Ox 95 09/26/19 08:12 Weight - Most Recent: 184 kg I&O - Last 24 Hours: Intake & Output 09/25/19 09/26/19 09/26/19 22:59 06:59 14:59 Intake Total 1000 2532 240 Output Total 200 450 200 Balance 800 2082 40 Lab Results Last 24 Hours: Laboratory Results - last 24 hr 09/25/19 09/25/19 09/25/19 Range/Units 15:28 15:30 15:30 WBC 22.4 H (4.5-11.0) K/uL RBC 4.35 (4.30-5.90) M/uL Hgb 13.7 (12.0-15.0) g/dL Hct 41.4 (40.0-54.0) % MCV 95 (80-98) fL MCH 32 H (27-31) pg MCHC 33 (32-36) % Plt Count 225 (150-400) K/uL Neut % (Auto) 78 H (36-66) % Lymph % (Auto) 9 L (24-44) % [place] % (Auto) 12 H (2-6) % Eos % (Auto) 0 L (2-4) % Baso % (Auto) 0 (0-1) % VBG pH (7.350-7.450) Sodium 137 L (140-148) mmol/L Potassium 4.6 (3.6-5.2) mmol/L Chloride 100 (100-108) mmol/L Carbon Dioxide 21 (21-32) mmol/L Anion Gap 20.6 H (5.0-14.0) mmol/L BUN 21 H (7-18) mg/dL Creatinine 1.4 H (0.8-1.3) mg/dL Est Cr Clr Drug Dosing 51.15 mL/min Estimated GFR (MDRD) 51 L (>60) Glucose 156 H (74-106) mg/dL Lactic Acid (0.4-2.0) mmol/L Calcium 9.2 (8.5-10.1) mg/dL Total Bilirubin 1.2 H (0.2-1.0) mg/dL AST 33 (15-37) U/L ALT 52 (12-78) U/L Alkaline Phosphatase 61 (46-116) U/L Total Protein 8.0 (6.4-8.2) g/dL Albumin 3.6 (3.4-5.0) g/dL Globulin 4.4 H (2.3-3.5) g/dL Albumin/Globulin Ratio 0.8 L (1.2-2.2) Urine Color Yellow (YELLOW) Urine Appearance Cloudy A (CLEAR) Urine pH 5.5 (5.0-8.0) Ur Specific [place] >= 1.030 (1.008-1.030) Urine Protein 100 H (NEGATIVE) mg/dL Urine Glucose (UA) Negative (NEGATIVE) mg/dL Urine Ketones 15 H (NEGATIVE) mg/dL Urine Occult Blood Moderate H (NEGATIVE) Urine Nitrite Positive H (NEGATIVE) Urine Bilirubin Large H (NEGATIVE) Urine Urobilinogen 0.2 (0.2-1.0) EU/dL Ur Leukocyte Esterase Small H (NEGATIVE) Urine RBC 10-20 H (0-5) Urine WBC Packed H (0-5) Ur Epithelial Cells Few Amorphous Sediment Not seen Urine Bacteria Many Urine Mucus Few 09/25/19 09/25/19 09/25/19 Range/Units 15:30 15:50 19:57 WBC (4.5-11.0) K/uL RBC (4.30-5.90) M/uL Hgb (12.0-15.0) g/dL Hct (40.0-54.0) % MCV (80-98) fL MCH (27-31) pg MCHC (32-36) % Plt Count (150-400) K/uL Neut % (Auto) (36-66) % Lymph % (Auto) (24-44) % [place] % (Auto) (2-6) % Eos % (Auto) (2-4) % Baso % (Auto) (0-1) % VBG pH 7.413 (7.350-7.450) Sodium (140-148) mmol/L Potassium (3.6-5.2) mmol/L Chloride (100-108) mmol/L Carbon Dioxide (21-32) mmol/L Anion Gap (5.0-14.0) mmol/L BUN (7-18) mg/dL Creatinine (0.8-1.3) mg/dL Est Cr Clr Drug Dosing mL/min Estimated GFR (MDRD) (>60) Glucose (74-106) mg/dL Lactic Acid 3.4 H 1.5 (0.4-2.0) mmol/L Calcium (8.5-10.1) mg/dL Total Bilirubin (0.2-1.0) mg/dL AST (15-37) U/L ALT (12-78) U/L Alkaline Phosphatase (46-116) U/L Total Protein (6.4-8.2) g/dL Albumin (3.4-5.0) g/dL Globulin (2.3-3.5) g/dL Albumin/Globulin Ratio (1.2-2.2) Urine Color (YELLOW) Urine Appearance (CLEAR) Urine pH (5.0-8.0) Ur Specific [place] (1.008-1.030) Urine Protein (NEGATIVE) mg/dL Urine Glucose (UA) (NEGATIVE) mg/dL Urine Ketones (NEGATIVE) mg/dL Urine Occult Blood (NEGATIVE) Urine Nitrite (NEGATIVE) Urine Bilirubin (NEGATIVE) Urine Urobilinogen (0.2-1.0) EU/dL Ur Leukocyte Esterase (NEGATIVE) Urine RBC (0-5) Urine WBC (0-5) Ur Epithelial Cells Amorphous Sediment Urine Bacteria Urine Mucus 09/26/19 09/26/19 Range/Units 05:35 05:35 WBC 18.0 H (4.5-11.0) K/uL RBC 3.73 L (4.30-5.90) M/uL Hgb 11.6 L D (12.0-15.0) g/dL Hct 35.8 L (40.0-54.0) % MCV 96 (80-98) fL MCH 31 (27-31) pg MCHC 32 (32-36) % Plt Count 178 (150-400) K/uL Neut % (Auto) (36-66) % Lymph % (Auto) (24-44) % [place] % (Auto) (2-6) % Eos % (Auto) (2-4) % Baso % (Auto) (0-1) % VBG pH (7.350-7.450) Sodium 137 L (140-148) mmol/L Potassium 3.9 (3.6-5.2) mmol/L Chloride 103 (100-108) mmol/L Carbon Dioxide 22 (21-32) mmol/L Anion Gap 15.9 H (5.0-14.0) mmol/L BUN 16 (7-18) mg/dL Creatinine 1.0 (0.8-1.3) mg/dL Est Cr Clr Drug Dosing 71.61 mL/min Estimated GFR (MDRD) > 60 (>60) Glucose 136 H (74-106) mg/dL Lactic Acid (0.4-2.0) mmol/L Calcium 8.1 L (8.5-10.1) mg/dL Total Bilirubin (0.2-1.0) mg/dL AST (15-37) U/L ALT (12-78) U/L Alkaline Phosphatase (46-116) U/L Total Protein (6.4-8.2) g/dL Albumin (3.4-5.0) g/dL Globulin (2.3-3.5) g/dL Albumin/Globulin Ratio (1.2-2.2) Urine Color (YELLOW) Urine Appearance (CLEAR) Urine pH (5.0-8.0) Ur Specific [place] (1.008-1.030) Urine Protein (NEGATIVE) mg/dL Urine Glucose (UA) (NEGATIVE) mg/dL Urine Ketones (NEGATIVE) mg/dL Urine Occult Blood (NEGATIVE) Urine Nitrite (NEGATIVE) Urine Bilirubin (NEGATIVE) Urine Urobilinogen (0.2-1.0) EU/dL Ur Leukocyte Esterase (NEGATIVE) Urine RBC (0-5) Urine WBC (0-5) Ur Epithelial Cells Amorphous Sediment Urine Bacteria Urine Mucus [place] Results Last 24 Hours: Microbiology 09/25/19 16:00 Urine Culture - Preliminary Urine, Bladder Med Orders - Current: Current Medications Acetaminophen (Tylenol) 650 mg PO Q4H PRN PRN Reason: Pain (Mild 1-3)/fever Last Admin: 09/26/19 00:18 Dose: 650 mg Aspirin (Halfprin) 81 mg PO DAILY [facility] Last Admin: 09/26/19 08:31 Dose: 81 mg Atorvastatin Calcium (Lipitor) 20 mg PO BEDTIME [facility] Last Admin: 09/25/19 21:29 Dose: 20 mg Fluoxetine HCl (Prozac) 20 mg PO DAILY [facility] Last Admin: 09/26/19 08:32 Dose: 20 mg Gabapentin (Neurontin) 600 mg PO DAILY@0800 [facility] Last Admin: 09/26/19 08:30 Dose: 600 mg Gabapentin (Neurontin) 1,200 mg PO BID@1400,2100 [facility] Last Admin: 09/25/19 21:29 Dose: 1,200 mg Ceftriaxone Sodium 2 gm/ (Sodium Chloride) 50 mls @ 100 mls/hr IV Q24H [facility] Insulin Human Lispro (Humalog) 0 unit SUBCUT QIDACANDBED [facility]; Protocol Last Admin: 09/26/19 08:26 Dose: Not Given Lactobacillus Rhamnosus (Culturelle) 1 cap PO BID [facility] Last Admin: 09/26/19 08:31 Dose: 1 cap Liraglutide (Victoza) 1.2 mg SUBCUT DAILY [facility] Last Admin: 09/26/19 08:32 Dose: 1.2 units Lorazepam (Ativan) 0.5 mg IVPUSH Q4H PRN PRN Reason: Nausea/Vomiting Magnesium Hydroxide (Milk Of Magnesia) 30 ml PO Q12H PRN PRN Reason: Constipation Melatonin (Melatonin) 9 mg PO BEDTIME PRN PRN Reason: Sleep Last Admin: 09/25/19 21:29 Dose: 9 mg Metformin HCl (Glucophage) 1,000 mg PO BIDAC [facility] Last Admin: 09/26/19 08:30 Dose: 1,000 mg Ondansetron HCl (Zofran Odt) 4 mg PO Q6H PRN PRN Reason: Nausea able to take PO Ondansetron HCl (Zofran) 4 mg IV Q6H PRN PRN Reason: Nausea/Vomiting Oxycodone HCl (Oxycodone) 5 mg PO Q4H PRN PRN Reason: Pain (moderate 4-6) Last Admin: 09/26/19 00:19 Dose: 5 mg Pantoprazole Sodium (Protonix) 40 mg PO ACBREAKFAST [facility] Last Admin: 09/26/19 08:31 Dose: 40 mg Ropinirole HCl (Requip) 0.5 mg PO BEDTIME [facility] Last Admin: 09/26/19 00:18 Dose: 0.5 mg Senna/Docusate Sodium (Senna Plus) 1 tab PO BID PRN PRN Reason: Constipation Discontinued Medications Hydromorphone HCl (Dilaudid) 0.5 mg IVPUSH ONETIME ONE Stop: 09/25/19 15:52 Last Admin: 09/25/19 16:13 Dose: 0.5 mg Sodium Chloride (Normal Saline) 1,000 mls @ 999 mls/hr IV ASDIRECTED [facility] Last Admin: 09/25/19 16:11 Dose: 999 mls/hr Ceftriaxone Sodium 1 gm/ (Sodium Chloride) 50 mls @ 100 mls/hr IV ONETIME ONE Stop: 09/25/19 16:46 Last Admin: 09/25/19 16:32 Dose: 100 mls/hr Lactated Ringer's (Ringers, Lactated) 1,000 mls @ 999 mls/hr IV ASDIRECTED [facility] Stop: 09/25/19 18:16 Last Admin: 09/25/19 18:04 Dose: 999 mls/hr Ceftriaxone Sodium 1 gm/ (Sodium Chloride) 50 mls @ 100 mls/hr IV ONETIME ONE Stop: 09/26/19 04:29 Last Admin: 09/26/19 04:58 Dose: 100 mls/hr Sodium Chloride (Normal Saline) 1,000 mls @ 125 mls/hr IV ASDIRECTED [facility] Last Admin: 09/26/19 02:49 Dose: 125 mls/hr Ondansetron HCl (Zofran) 4 mg IVPUSH ONETIME ONE Stop: 09/25/19 15:52 Last Admin: 09/25/19 16:12 Dose: 4 mg Phenazopyridine HCl (Urinary Pain Relief) 190 mg PO ONETIME ONE Stop: 09/25/19 16:17 Last Admin: 09/25/19 16:32 Dose: 190 mg Ropinirole HCl (Requip) 0.5 mg PO DAILY SARA - Exam Quality Assessment: No: Supplemental Oxygen General: Alert, Oriented, Cooperative, No Acute Distress Lungs: Normal Respiratory Effort Cardiovascular: Regular Rate, Regular Rhythm GI/Abdominal Exam: Soft, No Distention Extremities: No Pedal Edema Psy/Mental Status: Alert, Normal Affect Sepsis Event Note - Evaluation Sepsis Screening Result: No Definite Risk - Focused Exam Vital Signs: Vital Signs Temp Temp Pulse Resp BP BP Pulse Ox 09/26/19 08:12 36.6 C 72 16 114/60 95 09/26/19 02:48 36.4 C 77 18 103/51 L 95 09/26/19 00:48 36.9 C 09/26/19 00:18 37.5 C Date Exam was Performed: 09/26/19 Time Exam was Performed: 16:57 - Problem List & Annotations (1) Acute cystitis without hematuria SNOMED Code(s): 85816404 Code(s): N30.00 - ACUTE CYSTITIS WITHOUT HEMATURIA Status: Acute Current Visit: Yes (2) Sepsis SNOMED Code(s): 47165155 Code(s): A41.9 - SEPSIS, UNSPECIFIED ORGANISM Status: Acute Current Visit : Yes Qualifiers: Sepsis type: sepsis due to unspecified organism Sepsis acute organ dysfunction status: without acute organ dysfunction Qualified Code(s): A41.9 - Sepsis, unspecified organism (3) Type 2 diabetes mellitus, controlled SNOMED Code(s): 70995540, 955859455 Code(s): E11.9 - TYPE 2 DIABETES MELLITUS WITHOUT COMPLICATIONS Status: Chronic Current Visit: Yes Qualifiers: Diabetes mellitus nursing home insulin use: without nursing home use Diabetes mellitus complication status: with neurologic complications Diabetes mellitus complication detail: with polyneuropathy Qualified Code(s): E11.42 - Type 2 diabetes mellitus with diabetic polyneuropathy (4) Essential hypertension SNOMED Code(s): 57622384 Code(s): I10 - ESSENTIAL (PRIMARY) HYPERTENSION Status: Chronic Current Visit: Yes (5) Morbid obesity with BMI of 50.0-59.9, adult SNOMED Code(s): 138898492, 13047599010321 Code(s): E66.01 - MORBID (SEVERE) OBESITY DUE TO EXCESS CALORIES; Z68.43 - BODY MASS INDEX (BMI) 50.0-59.9, ADULT Status: Chronic Current Visit: Yes - Problem List Review Problem List Initiated/Reviewed/Updated: Yes - My Orders Last 24 Hours: My Active Orders 09/25/19 17:12 Resuscitation Status Routine 09/25/19 17:43 Patient Status [ADT] Routine Antiembolic Devices [RC] .Routine Communication Order [RC] PRN Communication Order [RC] PRN Diabetes Education [RC] Click to Edit Intake and Output [RC] QSHIFT Notify Provider Vital Signs [RC] ASDIRECTED Notify Provider [RC] PRN Oxygen Therapy [RC] PRN Up ad Farrah [RC] ASDIRECTED VTE/DVT Education [RC] Per Unit Routine Vital Signs [RC] Q4H Acetaminophen [Tylenol] 650 mg PO Q4H PRN Docusate Sodium/Sennosides [Senna Plus] 1 tab PO BID PRN LORazepam [Ativan] 0.5 mg IVPUSH Q4H PRN Magnesium Hydroxide [Milk of Magnesia] 30 ml PO Q12H PRN Ondansetron [Zofran ODT] 4 mg PO Q6H PRN Ondansetron [Zofran] 4 mg IV Q6H PRN oxyCODONE 5 mg PO Q4H PRN Sequential Compression Device [OM.PC] Routine 09/25/19 20:00 Insulin Lispro [HumaLOG] See Protocol SUBCUT QIDACANDBED 09/25/19 20:25 Melatonin 9 mg PO BEDTIME PRN 09/25/19 21:00 Gabapentin [Neurontin] 1,200 mg PO BID@1400,2100 Lactobacillus Rhamnosus GG [Culturelle] 1 cap PO BID atorvaSTATin [Lipitor] 20 mg PO BEDTIME 09/26/19 00:15 rOPINIRole [Requip] 0.5 mg PO BEDTIME 09/26/19 07:30 Pantoprazole [ProTONIX] 40 mg PO ACBREAKFAST metFORMIN [Glucophage] 1,000 mg PO BIDAC 09/26/19 08:00 Gabapentin [Neurontin] 600 mg PO DAILY@0800 09/26/19 09:00 Aspirin [Halfprin] 81 mg PO DAILY FLUoxetine [PROzac] 20 mg PO DAILY Liraglutide [Victoza] 1.2 mg SUBCUT DAILY 09/26/19 11:24 Discontinue Telemetry Monitoring [Cardiac Monitoring Discontinue] [RC] Click to Edit 09/26/19 11:30 GLUCOSE POC LAB TO COLLECT [POC] QIDACANDBED 09/26/19 12:00 Sodium Chloride 0.9% [Normal Saline] 1,000 ml IV ASDIRECTED 09/26/19 16:00 cefTRIAXone [Rocephin] 2 gm Sodium Chloride 0.9% [Normal Saline] 50 ml IV Q24H 09/26/19 16:30 GLUCOSE POC LAB TO COLLECT [POC] QIDACANDBED 09/26/19 21:00 GLUCOSE POC LAB TO COLLECT [POC] QIDACANDBED 09/26/19 Lunch Consistent Carbohydrate Diet [DIET] 09/27/19 05:00 BASIC METABOLIC PANEL,BMP [CHEM] Timed CBC W/O DIFF,HEMOGRAM [HEME] Timed (1) 09/27/19 07:30 GLUCOSE POC LAB TO COLLECT [POC] QIDACANDBED 09/27/19 11:30 GLUCOSE POC LAB TO COLLECT [POC] QIDACANDBED 09/27/19 16:30 GLUCOSE POC LAB TO COLLECT [POC] QIDACANDBED 09/27/19 21:00 GLUCOSE POC LAB TO COLLECT [POC] QIDACANDBED 09/28/19 07:30 GLUCOSE POC LAB TO COLLECT [POC] QIDACANDBED 09/28/19 11:30 GLUCOSE POC LAB TO COLLECT [POC] QIDACANDBED 09/28/19 16:30 GLUCOSE POC LAB TO COLLECT [POC] QIDACANDBED 09/28/19 21:00 GLUCOSE POC LAB TO COLLECT [POC] QIDACANDBED 09/29/19 07:30 GLUCOSE POC LAB TO COLLECT [POC] QIDACANDBED 09/29/19 11:30 GLUCOSE POC LAB TO COLLECT [POC] QIDACANDBED 09/29/19 16:30 GLUCOSE POC LAB TO COLLECT [POC] QIDACANDBED 09/29/19 21:00 GLUCOSE POC LAB TO COLLECT [POC] QIDACANDBED 09/30/19 07:30 GLUCOSE POC LAB TO COLLECT [POC] QIDACANDBED - Plan Plan:: ASSESSMENT AND PLAN - Acute cystitis without hematuria-complicated by sepsis and dehydration. Sepsis has resolved. He was febrile this afternoon and he did receive additional antibiotics and a second blood culture was obtained. Feeling a little better but still having difficulty with urgency and incontinence. Urine culture growing a gram-negative alejo but identification is pending. -Continue IV fluids -Ceftriaxone 2 g every 24 hours -Add ciprofloxacin until urine culture is final -Pain control -follow-up cultures Type 2 diabetes mellitus-recent increase in medications but this has been fairly well controlled. Blood sugars acceptable. -Continue metformin -Continue liraglutide -Discontinue sliding scale insulin Essential hypertension-blood pressure acceptable, will continue to hold antihypertensives until blood pressure rises a little further. -Hold lisinopril and diltiazem Morbid obesity-BMI greater than 50. Maintenance issues - - DVT prophylaxis -mechanical - GI prophylaxis -PPI - Nutrition -consistent carbohydrate Disposition -I would anticipate discharge home after the hospital stay Dr. Evans Davis M.D.
[2019-09-26] MEDS: Gabapentin 400 MG Cap PO SCH ×2 (14:39→21:28)
[2019-09-26] MEDS ORDERED: Ketorolac 30 MG/ML SDV IVPUSH ONE (16:05)
[2019-09-26] MEDS: cefTRIAXone 2 GM in Sodium Chloride 0.9% 50 ML IV SCH (16:20)
[2019-09-26] MEDS: Ciprofloxacin in D5W 400 MG in Premix Bag 1 BAG IV SCH ×2 (18:11)
[2019-09-26] MEDS: Zolpidem 5 MG Tab PO PRN (21:27)
[2019-09-26] MEDS: atorvaSTATin 20 MG Tab PO SCH (21:27)
[2019-09-27] MEDS: Acetaminophen 325 MG Tab PO PRN ×4 (02:56→21:16)
[2019-09-27] MEDS: Ciprofloxacin in D5W 400 MG in Premix Bag 1 BAG IV SCH ×4 (05:09→17:56)
[2019-09-27] MEDS: Sodium Chloride 0.9% 1,000 ML IV SCH ×2 (07:44→22:12)
[2019-09-27] MEDS: Pantoprazole 40 MG Tab.CR PO SCH (07:49)
[2019-09-27] MEDS: Gabapentin 300 MG Cap PO SCH (07:49)
[2019-09-27] MEDS: metFORMIN 500 MG Tab PO SCH ×2 (07:49→16:20)
[2019-09-27] MEDS: Aspirin 81 MG Tab.EC PO SCH (08:52)
[2019-09-27] MEDS: FLUoxetine 20 MG Cap PO SCH (08:52)
[2019-09-27] MEDS: Lactobacillus Rhamnosus GG (Probiotic) Cap PO SCH ×2 (08:52→21:15)
[2019-09-27] MEDS: Liraglutide (rDNA Origin) 0.6 MG/0.1 ML 3 ML Pen SUBCUT SCH (08:53)
--- NOTE | 2019-09-27 09:47 | PCM.PN ---
- General Info Date of Service: 09/27/19 Subjective Update: He had a temperature of 103 yesterday afternoon but no acute events overnight. Low-grade fever with some chills this morning. Still has some nausea. Still has some urinary urgency but this is a little better today. He has loose stools today. He is not complaining of any abdominal pain. He gets fatigued fairly quickly whenever he tries to do anything. Still not sleeping well. CT scan of the abdomen and pelvis showed a small nonobstructing stone in the right ureter and mild stranding around the right kidney as well as a thickened bladder with some surrounding stranding. Functional Status: Reports: Pain Controlled - Review of Systems General: Reports: Fever Gastrointestinal: Reports: Diarrhea, Nausea - Patient Data Vitals - Most Recent: Last Vital Signs Temp 37.7 C 09/27/19 07:33 Pulse 72 09/27/19 07:33 Resp 20 09/27/19 07:33 BP 125/60 09/27/19 07:33 Pulse Ox 96 09/27/19 07:33 Weight - Most Recent: 184 kg I&O - Last 24 Hours: Intake & Output 09/26/19 09/27/19 09/27/19 22:59 06:59 14:59 Intake Total 840 778 720 Output Total 250 475 125 Balance 590 303 595 Lab Results Last 24 Hours: Laboratory Results - last 24 hr 09/27/19 09/27/19 Range/Units 05:46 05:46 WBC 11.8 H (4.5-11.0) K/uL RBC 3.93 L (4.30-5.90) M/uL Hgb 12.5 (12.0-15.0) g/dL Hct 36.7 L (40.0-54.0) % MCV 93 (80-98) fL MCH 32 H (27-31) pg MCHC 34 (32-36) % Plt Count 147 L (150-400) K/uL Sodium 135 L (140-148) mmol/L Potassium 5.0 (3.6-5.2) mmol/L Chloride 103 (100-108) mmol/L Carbon Dioxide 18 L (21-32) mmol/L Anion Gap 19.0 H (5.0-14.0) mmol/L BUN 16 (7-18) mg/dL Creatinine 1.1 (0.8-1.3) mg/dL Est Cr Clr Drug Dosing 65.10 mL/min Estimated GFR (MDRD) > 60 (>60) Glucose 150 H (74-106) mg/dL Calcium 7.9 L (8.5-10.1) mg/dL [place] Results Last 24 Hours: Microbiology 09/25/19 16:00 Urine Culture - Final Urine, Bladder Escherichia Coli 09/25/19 16:00 Aerobic Blood Culture - Preliminary Blood - Venous - Iv Start NO GROWTH AFTER 1 DAY Anaerobic Blood Culture - Preliminary NO GROWTH AFTER 1 DAY 09/25/19 16:05 Aerobic Blood Culture - Preliminary Blood - Arm, Right NO GROWTH AFTER 1 DAY Anaerobic Blood Culture - Preliminary NO GROWTH AFTER 1 DAY Med Orders - Current: Current Medications Acetaminophen (Tylenol) 650 mg PO Q4H PRN PRN Reason: Pain (Mild 1-3)/fever Last Admin: 09/27/19 02:56 Dose: 650 mg Aspirin (Halfprin) 81 mg PO DAILY COUNT INCLUDES THE [facility] Last Admin: 09/27/19 08:52 Dose: 81 mg Atorvastatin Calcium (Lipitor) 20 mg PO BEDTIME COUNT INCLUDES THE [facility] Last Admin: 09/26/19 21:27 Dose: 20 mg Fluoxetine HCl (Prozac) 20 mg PO DAILY COUNT INCLUDES [facility] Last Admin: 09/27/19 08:52 Dose: 20 mg Gabapentin (Neurontin) 600 mg PO DAILY@0800 COUNT [facility]CLUD[facility] Last Admin: 09/27/19 07:49 Dose: 600 mg Gabapentin (Neurontin) 1,200 mg PO BID@1400,2100 COUNT [facility]CLUDES [facility] Last Admin: 09/26/19 21:28 Dose: 1,200 mg Ceftriaxone Sodium 2 gm/ (Sodium Chloride) 50 mls @ 100 mls/hr IV Q24H COUNT INCLUDES THE [facility] Last Admin: 09/26/19 16:20 Dose: 100 mls/hr Sodium Chloride (Normal Saline) 1,000 mls @ 75 mls/hr IV ASDIRECTED COUNT INCLUDES THE [facility] Last Admin: 09/27/19 07:44 Dose: 75 mls/hr Ciprofloxacin/Dextrose 400 mg/ (Premix) 200 mls @ 200 mls/hr IV Q12H COUNT INCLUDES [facility] Last Admin: 09/27/19 05:09 Dose: 200 mls/hr Lactobacillus Rhamnosus (Culturelle) 1 cap PO BID COUNT INCLUDES THE [facility] Last Admin: 09/27/19 08:52 Dose: 1 cap Liraglutide (Victoza) 1.2 mg SUBCUT DAILY COUNT INCLUDES [facility] Last Admin: 09/27/19 08:53 Dose: 1.2 mg Lorazepam (Ativan) 0.5 mg IVPUSH Q4H PRN PRN Reason: Nausea/Vomiting Magnesium Hydroxide (Milk Of Magnesia) 30 ml PO Q12H PRN PRN Reason: Constipation Melatonin (Melatonin) 9 mg PO BEDTIME PRN PRN Reason: Sleep Last Admin: 09/25/19 21:29 Dose: 9 mg Metformin HCl (Glucophage) 1,000 mg PO BIDAC COUNT INCLUDES THE [facility] Last Admin: 09/27/19 07:49 Dose: 1,000 mg Ondansetron HCl (Zofran Odt) 4 mg PO Q6H PRN PRN Reason: Nausea able to take PO Ondansetron HCl (Zofran) 4 mg IV Q6H PRN PRN Reason: Nausea/Vomiting Last Admin: 09/27/19 02:54 Dose: 4 mg Oxycodone HCl (Oxycodone) 5 mg PO Q4H PRN PRN Reason: Pain (moderate 4-6) Last Admin: 09/26/19 00:19 Dose: 5 mg Pantoprazole Sodium (Protonix) 40 mg PO ACBREAKFAST COUNT INCLUDES [facility] Last Admin: 09/27/19 07:49 Dose: 40 mg Ropinirole HCl (Requip) 0.5 mg PO BEDTIME COUNT INCLUDES [facility] Last Admin: 09/26/19 21:28 Dose: 0.5 mg Senna/Docusate Sodium (Senna Plus) 1 tab PO BID PRN PRN Reason: Constipation Zolpidem Tartrate (Ambien) 5 mg PO BEDTIME PRN PRN Reason: Sleep Last Admin: 09/26/19 21:27 Dose: 5 mg Discontinued Medications Hydromorphone HCl (Dilaudid) 0.5 mg IVPUSH ONETIME ONE Stop: 09/25/19 15:52 Last Admin: 09/25/19 16:13 Dose: 0.5 mg Sodium Chloride (Normal Saline) 1,000 mls @ 999 mls/hr IV ASDIRECTED COUNT INCLUDES THE [facility] Last Admin: 09/25/19 16:11 Dose: 999 mls/hr Ceftriaxone Sodium 1 gm/ (Sodium Chloride) 50 mls @ 100 mls/hr IV ONETIME ONE Stop: 09/25/19 16:46 Last Admin: 09/25/19 16:32 Dose: 100 mls/hr Lactated Ringer's (Ringers, Lactated) 1,000 mls @ 999 mls/hr IV ASDIRECTED COUNT INCLUDES THE [facility] Stop: 09/25/19 18:16 Last Admin: 09/25/19 18:04 Dose: 999 mls/hr Ceftriaxone Sodium 1 gm/ (Sodium Chloride) 50 mls @ 100 mls/hr IV ONETIME ONE Stop: 09/26/19 04:29 Last Admin: 09/26/19 04:58 Dose: 100 mls/hr Sodium Chloride (Normal Saline) 1,000 mls @ 125 mls/hr IV ASDIRECTED COUNT INCLUDES THE [facility] Last Admin: 09/26/19 02:49 Dose: 125 mls/hr Insulin Human Lispro (Humalog) 0 unit SUBCUT QIDACANDBED COUNT INCLUDES THE [facility]; Protocol Last Admin: 09/26/19 16:47 Dose: Not Given Ketorolac Tromethamine (Toradol) 30 mg IVPUSH ONETIME ONE Stop: 09/26/19 16:06 Last Admin: 09/26/19 16:20 Dose: 30 mg Ondansetron HCl (Zofran) 4 mg IVPUSH ONETIME ONE Stop: 09/25/19 15:52 Last Admin: 09/25/19 16:12 Dose: 4 mg Phenazopyridine HCl (Urinary Pain Relief) 190 mg PO ONETIME ONE Stop: 09/25/19 16:17 Last Admin: 09/25/19 16:32 Dose: 190 mg Ropinirole HCl (Requip) 0.5 mg PO DAILY [facility] - Exam Quality Assessment: No: Supplemental Oxygen General: Alert, Oriented, Cooperative, No Acute Distress Neck: Supple Lungs: Clear to Auscultation, Normal Respiratory Effort Cardiovascular: Regular Rate, Regular Rhythm GI/Abdominal Exam: Normal Bowel Sounds, Soft, Non-Tender, No Distention Extremities: No Pedal Edema. No: Increased Warmth Skin: Warm, Dry Psy/Mental Status: Alert, Normal Affect Sepsis Event Note - Evaluation Sepsis Screening Result: No Definite Risk - Focused Exam Vital Signs: Vital Signs Temp Temp Pulse Resp BP Pulse Ox 09/27/19 07:33 37.7 C 72 20 125/60 96 09/27/19 02:56 37.7 C 09/27/19 02:54 37.7 C 03/01/20 01:20 37.4 C 84 20 125/88 97 Date Exam was Performed: 09/27/19 Time Exam was Performed: 13:18 - Problem List & Annotations (1) Acute cystitis without hematuria SNOMED Code(s): 07836978 Code(s): N30.00 - ACUTE CYSTITIS WITHOUT HEMATURIA Status: Acute Current Visit: Yes (2) Sepsis SNOMED Code(s): 64434294 Code(s): A41.9 - SEPSIS, UNSPECIFIED ORGANISM Status: Acute Current Visit : Yes Qualifiers: Sepsis type: sepsis due to unspecified organism Sepsis acute organ dysfunction status: without acute organ dysfunction Qualified Code(s): A41.9 - Sepsis, unspecified organism (3) Type 2 diabetes mellitus, controlled SNOMED Code(s): 02976282, 511219688 Code(s): E11.9 - TYPE 2 DIABETES MELLITUS WITHOUT COMPLICATIONS Status: Chronic Current Visit: Yes Qualifiers: Diabetes mellitus medical terminologist insulin use: without correction use Diabetes mellitus complication status: with neurologic complications Diabetes mellitus complication detail: with polyneuropathy Qualified Code(s): E11.42 - Type 2 diabetes mellitus with diabetic polyneuropathy (4) Essential hypertension SNOMED Code(s): 22613603 Code(s): I10 - ESSENTIAL (PRIMARY) HYPERTENSION Status: Chronic Current Visit: Yes (5) Morbid obesity with BMI of 50.0-59.9, adult SNOMED Code(s): 039891719, 47500396585223 Code(s): E66.01 - MORBID (SEVERE) OBESITY DUE TO EXCESS CALORIES; Z68.43 - BODY MASS INDEX (BMI) 50.0-59.9, ADULT Status: Chronic Current Visit: Yes - Problem List Review Problem List Initiated/Reviewed/Updated: Yes - My Orders Last 24 Hours: My Active Orders 09/26/19 09:00 Aspirin [Halfprin] 81 mg PO DAILY FLUoxetine [PROzac] 20 mg PO DAILY Liraglutide [Victoza] 1.2 mg SUBCUT DAILY 09/26/19 12:00 Sodium Chloride 0.9% [Normal Saline] 1,000 ml IV ASDIRECTED 09/26/19 13:06 Zolpidem [Ambien] 5 mg PO BEDTIME PRN 09/26/19 16:00 cefTRIAXone [Rocephin] 2 gm Sodium Chloride 0.9% [Normal Saline] 50 ml IV Q24H 02/29/20 16:15 CULTURE BLOOD [BC] Urgent 09/26/19 17:00 Ciprofloxacin in D5W [Cipro in D5W 400 MG/200 ML] 400 mg Premix Bag 1 bag IV Q12H 09/26/19 Lunch Consistent Carbohydrate Diet [DIET] 09/27/19 03:38 CPAP Noctural Home [RT BiPAP/CPAP] [RC] ASDIRECTED 09/27/19 09:46 Abdomen Pelvis w Cont [CT] Routine 09/27/19 11:30 GLUCOSE POC LAB TO COLLECT [POC] QIDACANDBED 09/27/19 16:30 GLUCOSE POC LAB TO COLLECT [POC] QIDACANDBED 09/27/19 21:00 GLUCOSE POC LAB TO COLLECT [POC] QIDACANDBED 09/28/19 05:00 BASIC METABOLIC PANEL,BMP [CHEM] Timed CBC W/O DIFF,HEMOGRAM [HEME] Timed (1) 09/28/19 07:30 GLUCOSE POC LAB TO COLLECT [POC] QIDACANDBED 09/28/19 11:30 GLUCOSE POC LAB TO COLLECT [POC] QIDACANDBED 09/28/19 16:30 GLUCOSE POC LAB TO COLLECT [POC] QIDACANDBED 09/28/19 21:00 GLUCOSE POC LAB TO COLLECT [POC] QIDACANDBED 09/29/19 07:30 GLUCOSE POC LAB TO COLLECT [POC] QIDACANDBED 09/29/19 11:30 GLUCOSE POC LAB TO COLLECT [POC] QIDACANDBED 09/29/19 16:30 GLUCOSE POC LAB TO COLLECT [POC] QIDACANDBED 09/29/19 21:00 GLUCOSE POC LAB TO COLLECT [POC] QIDACANDBED 09/30/19 07:30 GLUCOSE POC LAB TO COLLECT [POC] QIDACANDBED - Plan Plan:: ASSESSMENT AND PLAN - Acute cystitis without hematuria-complicated by sepsis and dehydration. Sepsis has resolved. Significant fever yesterday afternoon and low-grade fever overnight. CT scan showed strong evidence for acute cystitis. He does have a right ureteral stone but no evidence for obstruction. Feeling a little better today and his urinary urgency is a little better. -Continue IV fluids -Continue ceftriaxone and ciprofloxacin for 1 more day then transition to monotherapy -Pain control -follow-up cultures Type 2 diabetes mellitus-Blood sugars acceptable. -Continue metformin -Continue liraglutide Essential hypertension-blood pressure acceptable, will continue to hold antihypertensives until blood pressure rises a little further. -Hold lisinopril and diltiazem, reassess in the morning Morbid obesity-BMI greater than 50. Maintenance issues - - DVT prophylaxis -mechanical - GI prophylaxis -PPI - Nutrition -consistent carbohydrate Disposition -I would anticipate discharge home after the hospital stay Atif Davis M.D.
[2019-09-27] MEDS ORDERED: Iopamidol 500 ML BOTTLE IV ONE (09:57)
--- NOTE | 2019-09-27 11:07 | CRLCT ---
INDICATION: fever, vomiting, diarrhea, complicated UTI Indication: Fever. Vomiting. Diarrhea. Complicated UTI. Technique: CT of the abdomen and pelvis. 150 cc of Isovue-300 IV. Coronal/sagittal reconstruction images. Comparison: None. Findings: Lung bases: No pleural or pericardial effusion. The heart size is normal. Interstitial type opacities are present at both lung bases. This is likely atelectasis or scarring. 6 millimeter left lower lobe pulmonary nodule on image 18, series 2. There is no basilar pneumothorax. Abdomen/pelvis: Diffuse hepatic steatosis. No solid hepatic mass. No perihepatic ascites. No inflammatory changes adjacent to the gallbladder. The spleen size is normal. No pancreatic mass or pancreatic duct dilation. No glandular atrophy. Benign left renal cyst. This measures 32 millimeters in dimension. There is either a 4 millimeter stone or contrast in the right intrarenal collecting system on image 83, series 2. Minor perinephric fat stranding. Mild thickening of the urinary bladder wall, with stranding in the extraperitoneal space of Retzius. This consistent with the history. There is colonic diverticulosis. There is no evidence for diverticulitis. There is no pneumatosis. There is no portal venous gas. There is no mural stratification. There is no bowel obstruction. There is an umbilical hernia containing fat. There is no enteric compromise. The defect measures 2 centimeters in transverse dimension. There is no adenopathy by size criteria in the pelvis, retroperitoneum, or gastrohepatic ligament. The celiac axis, SMA, and LUANN are patent. The bone windows demonstrate degenerative changes of the symphysis pubis. There are no suspicious bone lesions by CT. There are degenerative changes present at the endplates throughout the lower thoracic and lumbar spine. The vertebral body heights are maintained on sagittal reconstruction images. Impression: 1. Perinephric fat stranding, but no obstructive urolith, hydronephrosis, or striated nephrogram. 2. Fat stranding surrounding the urinary bladder and extraperitoneal space of Retzius, along with bladder wall thickening. This is consistent with the history of UTI. 3. 6 millimeter left lower lobe pulmonary nodule. Follow-up is suggested per Fleischner society guidelines. 4. No abdominal or pelvic lymphadenopathy by size criteria. Dictated by Patel Chavez MD @ 09/27/2019 11:06:23 AM Please note that all CT scans at this facility use dose modulation, iterative reconstruction, and/or weight-based dosing when appropriate to reduce radiation dose to as low as reasonably achievable. Dictated by: Patel Chavez MD @ 09/27/2019 11:06:38 (Electronically Signed)
[2019-09-27] MEDS: Gabapentin 400 MG Cap PO SCH ×2 (14:00→21:16)
[2019-09-27] MEDS: cefTRIAXone 2 GM in Sodium Chloride 0.9% 50 ML IV SCH (16:19)
[2019-09-27] MEDS: oxyCODONE 5 MG Tab PO PRN (21:16)
[2019-09-27] MEDS: atorvaSTATin 20 MG Tab PO SCH (21:16)
[2019-09-27] MEDS: Zolpidem 5 MG Tab PO PRN (21:16)
[2019-09-27] MEDS: rOPINIRole 0.5 MG Tab PO SCH (21:16)
[2019-09-28] MEDS: Ciprofloxacin in D5W 400 MG in Premix Bag 1 BAG IV SCH ×4 (05:03→16:21)
[2019-09-28] MEDS: Gabapentin 300 MG Cap PO SCH (07:49)
[2019-09-28] MEDS: metFORMIN 500 MG Tab PO SCH ×2 (07:49→16:21)
[2019-09-28] MEDS: Pantoprazole 40 MG Tab.CR PO SCH (07:49)
[2019-09-28] MEDS: Acetaminophen 325 MG Tab PO PRN ×2 (08:02→15:06)
[2019-09-28] MEDS: FLUoxetine 20 MG Cap PO SCH (08:05)
[2019-09-28] MEDS: Lactobacillus Rhamnosus GG (Probiotic) Cap PO SCH ×2 (08:05→22:02)
[2019-09-28] MEDS: Liraglutide (rDNA Origin) 0.6 MG/0.1 ML 3 ML Pen SUBCUT SCH (08:06)
[2019-09-28] MEDS: Aspirin 81 MG Tab.EC PO SCH (08:06)
--- NOTE | 2019-09-28 12:47 | PCM.PN ---
- General Info Date of Service: 09/28/19 Subjective Update: There were no acute events overnight. He did have a low-grade fever but not as high as the day before. He did have some nausea yesterday evening but this has resolved. No complaints of abdominal pain. No vomiting. Diarrhea is better today. Urinary urgency is better today. Oral intake has been improving. No new positive culture results. Blood sugars fairly well controlled. Functional Status: Reports: Pain Controlled - Review of Systems General: Reports: Fever Gastrointestinal: Reports: Nausea. Denies: Abdominal Pain - Patient Data Vitals - Most Recent: Last Vital Signs Temp 36.7 C 09/28/19 08:12 Pulse 70 09/28/19 10:01 Resp 18 09/28/19 10:01 BP 153/66 H 09/28/19 10:01 Pulse Ox 94 L 09/28/19 10:01 Weight - Most Recent: 148 kg I&O - Last 24 Hours: Intake & Output 09/27/19 09/28/19 09/28/19 22:59 06:59 14:59 Intake Total 1466 955 120 Output Total 225 500 200 Balance 1241 455 -80 Lab Results Last 24 Hours: Laboratory Results - last 24 hr 09/28/19 09/28/19 Range/Units 05:00 06:29 WBC 7.9 (4.5-11.0) K/uL RBC 3.83 L (4.30-5.90) M/uL Hgb 12.3 (12.0-15.0) g/dL Hct 36.0 L (40.0-54.0) % MCV 94 (80-98) fL MCH 32 H (27-31) pg MCHC 34 (32-36) % Plt Count 202 (150-400) K/uL Sodium 134 L (140-148) mmol/L Potassium 4.7 (3.6-5.2) mmol/L Chloride 102 (100-108) mmol/L Carbon Dioxide 20 L (21-32) mmol/L Anion Gap 16.7 H (5.0-14.0) mmol/L BUN 11 (7-18) mg/dL Creatinine 0.9 (0.8-1.3) mg/dL Est Cr Clr Drug Dosing 79.56 mL/min Estimated GFR (MDRD) > 60 (>60) Glucose 156 H (74-106) mg/dL Calcium 8.2 L (8.5-10.1) mg/dL [place] Results Last 24 Hours: Microbiology 09/26/19 16:15 Aerobic Blood Culture - Preliminary Blood - Arm, Right NO GROWTH AFTER 1 DAY Anaerobic Blood Culture - Preliminary NO GROWTH AFTER 1 DAY 09/25/19 16:05 Aerobic Blood Culture - Preliminary Blood - Arm, Right NO GROWTH AFTER 2 DAYS Anaerobic Blood Culture - Preliminary NO GROWTH AFTER 2 DAYS 09/25/19 16:00 Aerobic Blood Culture - Preliminary Blood - Venous - Iv Start NO GROWTH AFTER 2 DAYS Anaerobic Blood Culture - Preliminary NO GROWTH AFTER 2 DAYS Med Orders - Current: Current Medications Acetaminophen (Tylenol) 650 mg PO Q4H PRN PRN Reason: Pain (Mild 1-3)/fever Last Admin: 09/28/19 08:02 Dose: 650 mg Aspirin (Halfprin) 81 mg PO DAILY [facility] Last Admin: 09/28/19 08:06 Dose: 81 mg Atorvastatin Calcium (Lipitor) 20 mg PO BEDTIME [facility] Last Admin: 09/27/19 21:16 Dose: 20 mg Fluoxetine HCl (Prozac) 20 mg PO DAILY [facility] Last Admin: 09/28/19 08:05 Dose: 20 mg Gabapentin (Neurontin) 600 mg PO DAILY@0800 [facility] Last Admin: 09/28/19 07:49 Dose: 600 mg Gabapentin (Neurontin) 1,200 mg PO BID@1400,2100 [facility] Last Admin: 09/27/19 21:16 Dose: 1,200 mg Ciprofloxacin/Dextrose 400 mg/ (Premix) 200 mls @ 200 mls/hr IV Q12H [facility] Last Admin: 09/28/19 05:03 Dose: 200 mls/hr Lactobacillus Rhamnosus (Culturelle) 1 cap PO BID [facility] Last Admin: 09/28/19 08:05 Dose: 1 cap Liraglutide (Victoza) 1.2 mg SUBCUT DAILY [facility] Last Admin: 09/28/19 08:06 Dose: 1.2 mg Lorazepam (Ativan) 0.5 mg IVPUSH Q4H PRN PRN Reason: Nausea/Vomiting Magnesium Hydroxide (Milk Of Magnesia) 30 ml PO Q12H PRN PRN Reason: Constipation Melatonin (Melatonin) 9 mg PO BEDTIME PRN PRN Reason: Sleep Last Admin: 09/25/19 21:29 Dose: 9 mg Metformin HCl (Glucophage) 1,000 mg PO BIDAC [facility] Last Admin: 09/28/19 07:49 Dose: 1,000 mg Ondansetron HCl (Zofran Odt) 4 mg PO Q6H PRN PRN Reason: Nausea able to take PO Last Admin: 09/27/19 21:21 Dose: 4 mg Ondansetron HCl (Zofran) 4 mg IV Q6H PRN PRN Reason: Nausea/Vomiting Last Admin: 09/27/19 02:54 Dose: 4 mg Oxycodone HCl (Oxycodone) 5 mg PO Q4H PRN PRN Reason: Pain (moderate 4-6) Last Admin: 09/27/19 21:16 Dose: 5 mg Pantoprazole Sodium (Protonix) 40 mg PO ACBREAKFAST [facility] Last Admin: 09/28/19 07:49 Dose: 40 mg Ropinirole HCl (Requip) 0.5 mg PO BEDTIME [facility] Last Admin: 09/27/19 21:16 Dose: 0.5 mg Senna/Docusate Sodium (Senna Plus) 1 tab PO BID PRN PRN Reason: Constipation Zolpidem Tartrate (Ambien) 5 mg PO BEDTIME PRN PRN Reason: Sleep Last Admin: 09/27/19 21:16 Dose: 5 mg Discontinued Medications Hydromorphone HCl (Dilaudid) 0.5 mg IVPUSH ONETIME ONE Stop: 09/25/19 15:52 Last Admin: 09/25/19 16:13 Dose: 0.5 mg Sodium Chloride (Normal Saline) 1,000 mls @ 999 mls/hr IV ASDIRECTED [facility] Last Admin: 09/25/19 16:11 Dose: 999 mls/hr Ceftriaxone Sodium 1 gm/ (Sodium Chloride) 50 mls @ 100 mls/hr IV ONETIME ONE Stop: 09/25/19 16:46 Last Admin: 09/25/19 16:32 Dose: 100 mls/hr Lactated Ringer's (Ringers, Lactated) 1,000 mls @ 999 mls/hr IV ASDIRECTED [facility] Stop: 09/25/19 18:16 Last Admin: 09/25/19 18:04 Dose: 999 mls/hr Ceftriaxone Sodium 1 gm/ (Sodium Chloride) 50 mls @ 100 mls/hr IV ONETIME ONE Stop: 09/26/19 04:29 Last Admin: 09/26/19 04:58 Dose: 100 mls/hr Ceftriaxone Sodium 2 gm/ (Sodium Chloride) 50 mls @ 100 mls/hr IV Q24H [facility] Last Admin: 09/27/19 16:19 Dose: 100 mls/hr Sodium Chloride (Normal Saline) 1,000 mls @ 125 mls/hr IV ASDIRECTED [facility] Last Admin: 09/26/19 02:49 Dose: 125 mls/hr Sodium Chloride (Normal Saline) 1,000 mls @ 75 mls/hr IV ASDIRECTED [facility] Last Admin: 09/27/19 22:12 Dose: 75 mls/hr Sodium Chloride (Normal Saline) 85 mls @ 3.5 mls/sec IV ASDIRECTED [facility] Last Admin: 09/27/19 10:27 Dose: 3.5 mls/sec Insulin Human Lispro (Humalog) 0 unit SUBCUT QIDACANDBED [facility]; Protocol Last Admin: 09/26/19 16:47 Dose: Not Given Iopamidol (Isovue-300 (61%)) 150 ml IV ONETIME ONE Stop: 09/27/19 09:58 Last Admin: 09/27/19 10:26 Dose: 150 ml Ketorolac Tromethamine (Toradol) 30 mg IVPUSH ONETIME ONE Stop: 09/26/19 16:06 Last Admin: 09/26/19 16:20 Dose: 30 mg Ondansetron HCl (Zofran) 4 mg IVPUSH ONETIME ONE Stop: 09/25/19 15:52 Last Admin: 09/25/19 16:12 Dose: 4 mg Phenazopyridine HCl (Urinary Pain Relief) 190 mg PO ONETIME ONE Stop: 09/25/19 16:17 Last Admin: 09/25/19 16:32 Dose: 190 mg Ropinirole HCl (Requip) 0.5 mg PO DAILY [facility] - Exam Quality Assessment: No: Supplemental Oxygen General: Alert, Oriented, Cooperative, No Acute Distress Lungs: Normal Respiratory Effort GI/Abdominal Exam: Soft, No Distention Extremities: No Pedal Edema Skin: Warm, Dry Psy/Mental Status: Alert, Normal Affect Sepsis Event Note - Evaluation Sepsis Screening Result: No Definite Risk - Focused Exam Vital Signs: Vital Signs Temp Pulse Pulse Resp BP BP Pulse Ox 09/28/19 10:01 70 18 153/66 H 94 L 09/28/19 08:12 36.7 C 63 16 145/68 H 09/28/19 04:00 37.4 C 67 18 140/60 95 Date Exam was Performed: 09/28/19 Time Exam was Performed: 12:42 - Problem List & Annotations (1) Acute cystitis without hematuria SNOMED Code(s): 41075081 Code(s): N30.00 - ACUTE CYSTITIS WITHOUT HEMATURIA Status: Acute Current Visit: Yes (2) Sepsis SNOMED Code(s): 78732111 Code(s): A41.9 - SEPSIS, UNSPECIFIED ORGANISM Status: Acute Current Visit : Yes Qualifiers: Sepsis type: sepsis due to unspecified organism Sepsis acute organ dysfunction status: without acute organ dysfunction Qualified Code(s): A41.9 - Sepsis, unspecified organism (3) Type 2 diabetes mellitus, controlled SNOMED Code(s): 37538448, 109169970 Code(s): E11.9 - TYPE 2 DIABETES MELLITUS WITHOUT COMPLICATIONS Status: Chronic Current Visit: Yes Qualifiers: Diabetes mellitus mcc insulin use: without ferry terminal agent use Diabetes mellitus complication status: with neurologic complications Diabetes mellitus complication detail: with polyneuropathy Qualified Code(s): E11.42 - Type 2 diabetes mellitus with diabetic polyneuropathy (4) Essential hypertension SNOMED Code(s): 33379603 Code(s): I10 - ESSENTIAL (PRIMARY) HYPERTENSION Status: Chronic Current Visit: Yes (5) Morbid obesity with BMI of 50.0-59.9, adult SNOMED Code(s): 222443626, 68863689620698 Code(s): E66.01 - MORBID (SEVERE) OBESITY DUE TO EXCESS CALORIES; Z68.43 - BODY MASS INDEX (BMI) 50.0-59.9, ADULT Status: Chronic Current Visit: Yes - Problem List Review Problem List Initiated/Reviewed/Updated: Yes - My Orders Last 24 Hours: My Active Orders 09/28/19 12:39 Convert IV to Saline Lock [OM.PC] Routine 09/28/19 16:30 GLUCOSE POC LAB TO COLLECT [POC] QIDACANDBED 09/28/19 21:00 GLUCOSE POC LAB TO COLLECT [POC] QIDACANDBED 09/29/19 05:00 BASIC METABOLIC PANEL,BMP [CHEM] Timed CBC W/O DIFF,HEMOGRAM [HEME] Timed (1) 09/29/19 07:30 GLUCOSE POC LAB TO COLLECT [POC] QIDACANDBED 09/29/19 11:30 GLUCOSE POC LAB TO COLLECT [POC] QIDACANDBED 09/29/19 16:30 GLUCOSE POC LAB TO COLLECT [POC] QIDACANDBED 09/29/19 21:00 GLUCOSE POC LAB TO COLLECT [POC] QIDACANDBED 09/30/19 07:30 GLUCOSE POC LAB TO COLLECT [POC] QIDACANDBED - Plan Plan:: ASSESSMENT AND PLAN - Acute cystitis without hematuria-complicated by sepsis and dehydration. Sepsis has resolved. Curve trending down and symptomatically he is starting to feel better. Nausea is better. No abdominal pain. No positive blood cultures. -Saline lock IV -Continue ciprofloxacin -Discontinue ceftriaxone -Pain control -follow-up cultures Type 2 diabetes mellitus-Blood sugars acceptable. -Continue metformin -Continue liraglutide Essential hypertension-blood pressure acceptable, will continue to hold antihypertensives 1 more day but will restart tomorrow. -Hold lisinopril and diltiazem, restart in the morning Morbid obesity-BMI greater than 50. Maintenance issues - - DVT prophylaxis -mechanical - GI prophylaxis -PPI - Nutrition -consistent carbohydrate Disposition -I would anticipate discharge home after the hospital stay, likely tomorrow if stable overnight Atif Davis M.D.
[2019-09-28] MEDS: Gabapentin 400 MG Cap PO SCH ×2 (14:09→22:03)
[2019-09-28] MEDS: Lisinopril 20 MG Tab PO SCH (14:09)
[2019-09-28] MEDS: oxyCODONE 5 MG Tab PO PRN (22:00)
[2019-09-28] MEDS: Zolpidem 5 MG Tab PO PRN (22:01)
[2019-09-28] MEDS: atorvaSTATin 20 MG Tab PO SCH (22:03)
[2019-09-28] MEDS: rOPINIRole 0.5 MG Tab PO SCH (22:03)
[2019-09-29] MEDS: oxyCODONE 5 MG Tab PO PRN ×2 (05:36→21:49)
[2019-09-29] MEDS: Ciprofloxacin in D5W 400 MG in Premix Bag 1 BAG IV SCH ×4 (05:38→18:18)
[2019-09-29] MEDS: Gabapentin 300 MG Cap PO SCH (08:07)
[2019-09-29] MEDS: Lactobacillus Rhamnosus GG (Probiotic) Cap PO SCH ×2 (08:10→21:42)
[2019-09-29] MEDS: metFORMIN 500 MG Tab PO SCH ×2 (08:10→16:19)
[2019-09-29] MEDS: Pantoprazole 40 MG Tab.CR PO SCH (08:10)
[2019-09-29] MEDS: Diltiazem 120 MG Cap.CD PO SCH (08:10)
[2019-09-29] MEDS: Aspirin 81 MG Tab.EC PO SCH (08:10)
[2019-09-29] MEDS: Lisinopril 20 MG Tab PO SCH (08:12)
[2019-09-29] MEDS: FLUoxetine 20 MG Cap PO SCH (08:13)
[2019-09-29] MEDS: Liraglutide (rDNA Origin) 0.6 MG/0.1 ML 3 ML Pen SUBCUT SCH (08:14)
[2019-09-29] MEDS: Gabapentin 400 MG Cap PO SCH ×2 (12:59→21:42)
--- NOTE | 2019-09-29 14:40 | PCM.PN ---
- General Info Date of Service: 09/29/19 Subjective Update: Mr. Zaldivar has shown further improvement in the last 24 hours, he has remained afebrile with good improvement in appetite. Still somewhat weak and unsteady with ambulation. Functional Status: Reports: Tolerating Diet, Ambulating, Urinating - Review of Systems General: Reports: Weakness, Fatigue. Denies: Fever, Chills Pulmonary: Reports: No Symptoms Cardiovascular: Reports: No Symptoms Gastrointestinal: Reports: No Symptoms Genitourinary: Reports: No Symptoms - Patient Data Vitals - Most Recent: Last Vital Signs Temp 97.3 F 09/29/19 10:22 Pulse 57 L 09/29/19 10:22 Resp 18 09/29/19 10:22 BP 134/53 L 09/29/19 10:22 Pulse Ox 95 09/29/19 10:22 Weight - Most Recent: 326 lb 4.546 oz I&O - Last 24 Hours: Intake & Output 09/28/19 09/29/19 09/29/19 22:59 06:59 14:59 Intake Total 700 600 720 Output Total 800 Balance 700 -200 720 Lab Results Last 24 Hours: Laboratory Results - last 24 hr 09/29/19 09/29/19 Range/Units 05:00 05:00 WBC 8.4 (4.5-11.0) K/uL RBC 3.74 L (4.30-5.90) M/uL Hgb 11.7 L (12.0-15.0) g/dL Hct 34.6 L (40.0-54.0) % MCV 93 (80-98) fL MCH 31 (27-31) pg MCHC 34 (32-36) % Plt Count 219 (150-400) K/uL Sodium 139 L (140-148) mmol/L Potassium 4.2 (3.6-5.2) mmol/L Chloride 103 (100-108) mmol/L Carbon Dioxide 24 (21-32) mmol/L Anion Gap 16.2 H (5.0-14.0) mmol/L BUN 11 (7-18) mg/dL Creatinine 0.9 (0.8-1.3) mg/dL Est Cr Clr Drug Dosing 79.37 mL/min Estimated GFR (MDRD) > 60 (>60) Glucose 136 H (74-106) mg/dL Calcium 8.6 (8.5-10.1) mg/dL [place] Results Last 24 Hours: Microbiology 09/26/19 16:15 Aerobic Blood Culture - Preliminary Blood - Arm, Right NO GROWTH AFTER 2 DAYS Anaerobic Blood Culture - Preliminary NO GROWTH AFTER 2 DAYS 09/25/19 16:05 Aerobic Blood Culture - Preliminary Blood - Arm, Right NO GROWTH AFTER 3 DAYS Anaerobic Blood Culture - Preliminary NO GROWTH AFTER 3 DAYS 09/25/19 16:00 Aerobic Blood Culture - Preliminary Blood - Venous - Iv Start NO GROWTH AFTER 3 DAYS Anaerobic Blood Culture - Preliminary NO GROWTH AFTER 3 DAYS Med Orders - Current: Current Medications Acetaminophen (Tylenol) 650 mg PO Q4H PRN PRN Reason: Pain (Mild 1-3)/fever Last Admin: 09/28/19 15:06 Dose: 650 mg Aspirin (Halfprin) 81 mg PO DAILY [facility] Last Admin: 09/29/19 08:10 Dose: 81 mg Atorvastatin Calcium (Lipitor) 20 mg PO BEDTIME [facility] Last Admin: 09/28/19 22:03 Dose: 20 mg Diltiazem HCl (Cardizem Cd) 240 mg PO DAILY [facility] Last Admin: 09/29/19 08:10 Dose: 240 mg Fluoxetine HCl (Prozac) 20 mg PO DAILY [facility] Last Admin: 09/29/19 08:13 Dose: 20 mg Gabapentin (Neurontin) 600 mg PO DAILY@0800 [facility] Last Admin: 09/29/19 08:07 Dose: 600 mg Gabapentin (Neurontin) 1,200 mg PO BID@1400,2100 [facility] Last Admin: 09/29/19 12:59 Dose: 1,200 mg Ciprofloxacin/Dextrose 400 mg/ (Premix) 200 mls @ 200 mls/hr IV Q12H [facility] Last Admin: 09/29/19 05:38 Dose: 200 mls/hr Lactobacillus Rhamnosus (Culturelle) 1 cap PO BID [facility] Last Admin: 09/29/19 08:10 Dose: 1 cap Liraglutide (Victoza) 1.2 mg SUBCUT DAILY [facility] Last Admin: 09/29/19 08:14 Dose: 1.2 mg Lisinopril (Prinivil) 40 mg PO DAILY [facility] Last Admin: 09/29/19 08:12 Dose: 40 mg Lorazepam (Ativan) 0.5 mg IVPUSH Q4H PRN PRN Reason: Nausea/Vomiting Magnesium Hydroxide (Milk Of Magnesia) 30 ml PO Q12H PRN PRN Reason: Constipation Melatonin (Melatonin) 9 mg PO BEDTIME PRN PRN Reason: Sleep Last Admin: 09/25/19 21:29 Dose: 9 mg Metformin HCl (Glucophage) 1,000 mg PO BIDAC [facility] Last Admin: 09/29/19 08:10 Dose: 1,000 mg Ondansetron HCl (Zofran Odt) 4 mg PO Q6H PRN PRN Reason: Nausea able to take PO Last Admin: 09/27/19 21:21 Dose: 4 mg Ondansetron HCl (Zofran) 4 mg IV Q6H PRN PRN Reason: Nausea/Vomiting Last Admin: 09/27/19 02:54 Dose: 4 mg Oxycodone HCl (Oxycodone) 5 mg PO Q4H PRN PRN Reason: Pain (moderate 4-6) Last Admin: 09/29/19 05:36 Dose: 5 mg Pantoprazole Sodium (Protonix) 40 mg PO ACBREAKFAST [facility] Last Admin: 09/29/19 08:10 Dose: 40 mg Ropinirole HCl (Requip) 0.5 mg PO BEDTIME [facility] Last Admin: 09/28/19 22:03 Dose: 0.5 mg Senna/Docusate Sodium (Senna Plus) 1 tab PO BID PRN PRN Reason: Constipation Zolpidem Tartrate (Ambien) 5 mg PO BEDTIME PRN PRN Reason: Sleep Last Admin: 09/28/19 22:01 Dose: 5 mg Discontinued Medications Hydromorphone HCl (Dilaudid) 0.5 mg IVPUSH ONETIME ONE Stop: 09/25/19 15:52 Last Admin: 09/25/19 16:13 Dose: 0.5 mg Sodium Chloride (Normal Saline) 1,000 mls @ 999 mls/hr IV ASDIRECTED [facility] Last Admin: 09/25/19 16:11 Dose: 999 mls/hr Ceftriaxone Sodium 1 gm/ (Sodium Chloride) 50 mls @ 100 mls/hr IV ONETIME ONE Stop: 09/25/19 16:46 Last Admin: 09/25/19 16:32 Dose: 100 mls/hr Lactated Ringer's (Ringers, Lactated) 1,000 mls @ 999 mls/hr IV ASDIRECTED [facility] Stop: 09/25/19 18:16 Last Admin: 09/25/19 18:04 Dose: 999 mls/hr Ceftriaxone Sodium 1 gm/ (Sodium Chloride) 50 mls @ 100 mls/hr IV ONETIME ONE Stop: 09/26/19 04:29 Last Admin: 09/26/19 04:58 Dose: 100 mls/hr Ceftriaxone Sodium 2 gm/ (Sodium Chloride) 50 mls @ 100 mls/hr IV Q24H [facility] Last Admin: 09/27/19 16:19 Dose: 100 mls/hr Sodium Chloride (Normal Saline) 1,000 mls @ 125 mls/hr IV ASDIRECTED [facility] Last Admin: 09/26/19 02:49 Dose: 125 mls/hr Sodium Chloride (Normal Saline) 1,000 mls @ 75 mls/hr IV ASDIRECTED [facility] Last Admin: 09/27/19 22:12 Dose: 75 mls/hr Sodium Chloride (Normal Saline) 85 mls @ 3.5 mls/sec IV ASDIRECTED [facility] Last Admin: 09/27/19 10:27 Dose: 3.5 mls/sec Insulin Human Lispro (Humalog) 0 unit SUBCUT QIDACANDBED [facility]; Protocol Last Admin: 09/26/19 16:47 Dose: Not Given Iopamidol (Isovue-300 (61%)) 150 ml IV ONETIME ONE Stop: 09/27/19 09:58 Last Admin: 09/27/19 10:26 Dose: 150 ml Ketorolac Tromethamine (Toradol) 30 mg IVPUSH ONETIME ONE Stop: 09/26/19 16:06 Last Admin: 09/26/19 16:20 Dose: 30 mg Ondansetron HCl (Zofran) 4 mg IVPUSH ONETIME ONE Stop: 09/25/19 15:52 Last Admin: 09/25/19 16:12 Dose: 4 mg Phenazopyridine HCl (Urinary Pain Relief) 190 mg PO ONETIME ONE Stop: 09/25/19 16:17 Last Admin: 09/25/19 16:32 Dose: 190 mg Ropinirole HCl (Requip) 0.5 mg PO DAILY [facility] - Exam Quality Assessment: DVT Prophylaxis General: Alert, Oriented, Cooperative, Mild Distress Lungs: Clear to Auscultation, Normal Respiratory Effort Cardiovascular: Regular Rate, Regular Rhythm, No Murmurs GI/Abdominal Exam: Soft, Non-Tender, No Organomegaly, No Distention Extremities: Non-Tender, No Pedal Edema Sepsis Event Note - Evaluation Sepsis Screening Result: No Definite Risk - Focused Exam Vital Signs: Vital Signs Temp Pulse Pulse Pulse Resp BP BP 09/29/19 10:22 97.3 F 57 L 18 09/29/19 08:19 97.5 F 59 L 18 09/29/19 08:12 138/62 09/29/19 08:10 59 L 138/62 09/29/19 04:00 98.8 F 53 L 14 154/66 H BP Pulse Ox 09/29/19 10:22 134/53 L 95 09/29/19 08:19 138/62 95 09/29/19 08:12 09/29/19 08:10 09/29/19 04:00 95 Date Exam was Performed: 09/29/19 Time Exam was Performed: 14:38 - Problem List Review Problem List Initiated/Reviewed/Updated: Yes - Plan Plan:: ASSESSMENT AND PLAN - Acute cystitis without hematuria-complicated by sepsis and dehydration. Sepsis has resolved. Afebrile for 24 hours, appetite improved. Urine culture growing pansensitive E. coli -Saline lock IV -Continue ciprofloxacin Type 2 diabetes mellitus-Blood sugars acceptable. -Continue metformin -Continue liraglutide Essential hypertension-blood pressure acceptable, will continue to hold antihypertensives 1 more day but will restart tomorrow. -Hold lisinopril and diltiazem, restart in the morning Morbid obesity-BMI greater than 50. Maintenance issues - - DVT prophylaxis -mechanical - GI prophylaxis -PPI - Nutrition -consistent carbohydrate Disposition -I would anticipate discharge home tomorrow
[2019-09-29] MEDS: rOPINIRole 0.5 MG Tab PO SCH (21:44)
[2019-09-29] MEDS: atorvaSTATin 20 MG Tab PO SCH (21:44)
[2019-09-29] MEDS: Zolpidem 5 MG Tab PO PRN (21:49)
[2019-09-30] MEDS: Ciprofloxacin in D5W 400 MG in Premix Bag 1 BAG IV SCH ×2 (05:38)
[2019-09-30 08:00] VITALS: BP 143/63; PULSE 57
[2019-09-30] MEDS: Pantoprazole 40 MG Tab.CR PO SCH (08:02)
[2019-09-30] MEDS: metFORMIN 500 MG Tab PO SCH (08:02)
[2019-09-30] MEDS: Gabapentin 300 MG Cap PO SCH (08:02)
[2019-09-30] MEDS: Diltiazem 120 MG Cap.CD PO SCH (08:03)
[2019-09-30] MEDS: Lactobacillus Rhamnosus GG (Probiotic) Cap PO SCH (08:03)
[2019-09-30] MEDS: FLUoxetine 20 MG Cap PO SCH (08:04)
[2019-09-30] MEDS: Lisinopril 20 MG Tab PO SCH (08:04)
[2019-09-30] MEDS: Aspirin 81 MG Tab.EC PO SCH (08:04)
[2019-09-30] MEDS: Liraglutide (rDNA Origin) 0.6 MG/0.1 ML 3 ML Pen SUBCUT SCH (08:05)
--- NOTE | 2019-09-30 10:56 | PCM.DCSUM1 ---
Discharge Summary - Hospital Course Brief History: Mr. Zaldivar a 64-year-old gentleman who was admitted through the emergency department with weakness, dehydration, fever, secondary to underlying complicated urinary tract infection with sepsis. - Discharge Data Discharge Date: 09/30/19 Discharge Disposition: Home, Self-Care 01 Condition: Stable - Referral to Home Health Primary Care Physician: Gustabo Krueger MD - Discharge Diagnosis/Problem(s) (1) Acute cystitis without hematuria SNOMED Code(s): 34024731 ICD Code: N30.00 - ACUTE CYSTITIS WITHOUT HEMATURIA Status: Acute Current Visit: Yes (2) Dehydration SNOMED Code(s): 81305557 ICD Code: E86.0 - DEHYDRATION Status: Acute Current Visit: Yes (3) Elevated lactic acid level SNOMED Code(s): 4377539 ICD Code: R79.89 - OTHER SPECIFIED ABNORMAL FINDINGS OF BLOOD CHEMISTRY Status: Acute Current Visit: Yes (4) Sepsis SNOMED Code(s): 57278286 ICD Code: A41.9 - SEPSIS, UNSPECIFIED ORGANISM Status: Acute Current Visit: Yes Qualifiers: Sepsis type: sepsis due to unspecified organism Sepsis acute organ dysfunction status: without acute organ dysfunction Qualified Code(s): A41.9 - Sepsis, unspecified organism (5) Morbid obesity with BMI of 50.0-59.9, adult SNOMED Code(s): 277468704, 45588404953262 ICD Code: E66.01 - MORBID (SEVERE) OBESITY DUE TO EXCESS CALORIES; Z68.43 - BODY MASS INDEX (BMI) 50.0-59.9, ADULT Status: Chronic Current Visit: Yes (6) Type 2 diabetes mellitus, controlled SNOMED Code(s): 85589314, 243427602 ICD Code: E11.9 - TYPE 2 DIABETES MELLITUS WITHOUT COMPLICATIONS Status: Chronic Current Visit: Yes Qualifiers: Diabetes mellitus termite control technician insulin use: without termite control technician use Diabetes mellitus complication status: with neurologic complications Diabetes mellitus complication detail: with polyneuropathy Qualified Code(s): E11.42 - Type 2 diabetes mellitus with diabetic polyneuropathy - Patient Summary/Data Hospital Course: Mr. Zaldivar presented to the emergency room with dysuria, fever, chills and nausea with vomiting. He first noticed a fever about 48 hours prior to admission. He had associated shaking chills but no impressive symptoms at that time otherwise. The next morning he developed mild dysuria as well as frequent but small quantity urination. Symptoms progressed over the next 24 hours with worsening dysuria and even smaller quantities of urine were passed. He had some episodes of chilling but no obvious fevers. He developed intermittent nausea with vomiting. He has not had anything to eat in 24 hours. Oral intake has been dramatically reduced compared to baseline. He has had significant fatigue over the past 24 hours. Work-up in the emergency room was suggestive of sepsis secondary to a urinary tract infection. He is dehydrated and has mild acute kidney injury. He has received antibiotics and fluids and will be admitted for further management. On admission he was treated with ceftriaxone as well as given IV fluids per sepsis protocol. Over the next few days of hospitalization he gradually improved. CT scan of the abdomen showed stranding about the kidneys as well as around the bladder. Sepsis resolved and he remained hemodynamically stable with resolution of his mild lactic acidosis. Appetite gradually improved and by the time of discharge he was up and ambulating without significant difficulty. Culture grew out E. coli and he was transitioned to oral antibiotic therapy with ciprofloxacin. He will complete another 3 days of oral antibiotic therapy after discharge. Follow-up appointment will be scheduled with his primary care provider within 1 week. Glucose levels were monitored throughout his hospital stay for management of his type 2 diabetes mellitus. Activity will be as tolerated and he will remain on a diabetic diet. - Patient Instructions Diet: Diabetic Diet Activity: As Tolerated Other/Special Instructions: FU appt w/ primary care provider w/in 1 week - Discharge Plan *PRESCRIPTION DRUG MONITORING PROGRAM REVIEWED*: Not Applicable *COPY OF PRESCRIPTION DRUG MONITORING REPORT IN PATIENT STELLA: Not Applicable Prescriptions/Med Rec: Ciprofloxacin HCl [Cipro] 500 mg PO BID #6 tablet Lactobacillus Rhamnosus GG [Culturelle] 1 cap PO BID #60 cap Home Medications: Home Meds Cholecalciferol (Vitamin D3) [Vitamin D3] 2,000 unit PO DAILY 07/16/14 [History] Diltiazem HCl [Diltiazem 24Hr Cd] 240 mg PO DAILY 07/16/14 [History] FLUoxetine [PROzac] 20 mg PO DAILY 07/16/14 [History] Lisinopril 40 mg PO DAILY 07/16/14 [History] Omeprazole [Prilosec] 20 mg PO DAILY 07/16/14 [History] Vitamin E 200 unit PO DAILY 07/16/14 [History] Glucosam/Chond/Collagen/Hyalur [Glucosamine Chondroitin] 2 tab PO BID 07/19/14 [ History] [place]-3 Fatty Acids [Fish Oil] 1,000 mg PO DAILY 07/19/14 [History] Gabapentin [Gralise] 600 mg PO QAM 07/15/15 [History] atorvaSTATin Calcium [Atorvastatin Calcium] 1 tab PO BEDTIME 02/28/18 [History] rOPINIRole HCl [Requip] 0.5 mg PO DAILY 02/28/18 [History] Aspirin 81 mg PO DAILY 09/25/19 [History] Etodolac [Lodine] 500 mg PO BID 09/25/19 [History] Gabapentin [Neurontin] 1,200 mg PO BID 09/25/19 [History] Liraglutide [Victoza] 1.2 mg SUBCUT DAILY 09/25/19 [History] Nitroglycerin [Nitrostat] 0.4 mg SL ASDIRECTED PRN 09/25/19 [History] Potassium Gluconate [Potassium] 99 mg PO DAILY 09/25/19 [History] Triamcinolone Acetonide [Triamcinolone Acetonide 0.025%] 1 applic TOP BID PRN [History] metFORMIN HCl [Metformin HCl] 1,000 mg PO BIDAC 09/25/19 [History] Ciprofloxacin HCl [Cipro] 500 mg PO BID #6 tablet 09/30/19 [Rx] Lactobacillus Rhamnosus GG [Culturelle] 1 cap PO BID #60 cap 09/30/19 [Rx] Patient Handouts: Urinary Tract Infection, Adult, [id number] Referrals: Gustabo Krueger MD [Primary Care Provider] - 10/05/19 10:30 am ([place] at clinic front office spec 15 minutes prior to appointment ) - Discharge Summary/Plan Comment DC Time >30 min.: No - Patient Data Vitals - Most Recent: Last Vital Signs Temp 97.3 F 09/30/19 07:58 Pulse 57 L 09/30/19 08:03 Resp 16 09/30/19 07:58 BP 143/63 H 09/30/19 08:04 Pulse Ox 93 L 09/30/19 07:58 Weight - Most Recent: 326 lb 4.546 oz I&O - Last 24 hours: Intake & Output 03/0309/30/19 09/30/19 22:59 06:59 14:59 Intake Total 290 200 Output Total 1000 Balance 290 -800 [place] Results - Last 24 hrs: Microbiology 09/26/19 16:15 Aerobic Blood Culture - Preliminary Blood - Arm, Right NO GROWTH AFTER 3 DAYS Anaerobic Blood Culture - Preliminary NO GROWTH AFTER 3 DAYS 09/25/19 16:00 Aerobic Blood Culture - Preliminary Blood - Venous - Iv Start NO GROWTH AFTER 4 DAYS Anaerobic Blood Culture - Preliminary NO GROWTH AFTER 4 DAYS 09/25/19 16:05 Aerobic Blood Culture - Preliminary Blood - Arm, Right NO GROWTH AFTER 4 DAYS Anaerobic Blood Culture - Preliminary NO GROWTH AFTER 4 DAYS Med Orders - Current: Current Medications Acetaminophen (Tylenol) 650 mg PO Q4H PRN PRN Reason: Pain (Mild 1-3)/fever Last Admin: 09/28/19 15:06 Dose: 650 mg Aspirin (Halfprin) 81 mg PO DAILY [facility] Last Admin: 09/30/19 08:04 Dose: 81 mg Atorvastatin Calcium (Lipitor) 20 mg PO BEDTIME [facility] Last Admin: 09/29/19 21:44 Dose: 20 mg Diltiazem HCl (Cardizem Cd) 240 mg PO DAILY [facility] Last Admin: 09/30/19 08:03 Dose: 240 mg Fluoxetine HCl (Prozac) 20 mg PO DAILY [facility] Last Admin: 09/30/19 08:04 Dose: 20 mg Gabapentin (Neurontin) 600 mg PO DAILY@0800 [facility] Last Admin: 09/30/19 08:02 Dose: 600 mg Gabapentin (Neurontin) 1,200 mg PO BID@1400,2100 [facility] Last Admin: 09/29/19 21:42 Dose: 1,200 mg Ciprofloxacin/Dextrose 400 mg/ (Premix) 200 mls @ 200 mls/hr IV Q12H [facility] Last Admin: 09/30/19 05:38 Dose: 200 mls/hr Lactobacillus Rhamnosus (Culturelle) 1 cap PO BID [facility] Last Admin: 09/30/19 08:03 Dose: 1 cap Liraglutide (Victoza) 1.2 mg SUBCUT DAILY [facility] Last Admin: 09/30/19 08:05 Dose: 1.2 mg Lisinopril (Prinivil) 40 mg PO DAILY [facility] Last Admin: 09/30/19 08:04 Dose: 40 mg Lorazepam (Ativan) 0.5 mg IVPUSH Q4H PRN PRN Reason: Nausea/Vomiting Magnesium Hydroxide (Milk Of Magnesia) 30 ml PO Q12H PRN PRN Reason: Constipation Melatonin (Melatonin) 9 mg PO BEDTIME PRN PRN Reason: Sleep Last Admin: 09/25/19 21:29 Dose: 9 mg Metformin HCl (Glucophage) 1,000 mg PO BIDAC [facility] Last Admin: 09/30/19 08:02 Dose: 1,000 mg Ondansetron HCl (Zofran Odt) 4 mg PO Q6H PRN PRN Reason: Nausea able to take PO Last Admin: 09/27/19 21:21 Dose: 4 mg Ondansetron HCl (Zofran) 4 mg IV Q6H PRN PRN Reason: Nausea/Vomiting Last Admin: 09/27/19 02:54 Dose: 4 mg Oxycodone HCl (Oxycodone) 5 mg PO Q4H PRN PRN Reason: Pain (moderate 4-6) Last Admin: 09/29/19 21:49 Dose: 5 mg Pantoprazole Sodium (Protonix) 40 mg PO ACBREAKFAST [facility] Last Admin: 09/30/19 08:02 Dose: 40 mg Ropinirole HCl (Requip) 0.5 mg PO BEDTIME [facility] Last Admin: 09/29/19 21:44 Dose: 0.5 mg Senna/Docusate Sodium (Senna Plus) 1 tab PO BID PRN PRN Reason: Constipation Zolpidem Tartrate (Ambien) 5 mg PO BEDTIME PRN PRN Reason: Sleep Last Admin: 09/29/19 21:49 Dose: 5 mg Discontinued Medications Hydromorphone HCl (Dilaudid) 0.5 mg IVPUSH ONETIME ONE Stop: 09/25/19 15:52 Last Admin: 09/25/19 16:13 Dose: 0.5 mg Sodium Chloride (Normal Saline) 1,000 mls @ 999 mls/hr IV ASDIRECTED [facility] Last Admin: 09/25/19 16:11 Dose: 999 mls/hr Ceftriaxone Sodium 1 gm/ (Sodium Chloride) 50 mls @ 100 mls/hr IV ONETIME ONE Stop: 09/25/19 16:46 Last Admin: 09/25/19 16:32 Dose: 100 mls/hr Lactated Ringer's (Ringers, Lactated) 1,000 mls @ 999 mls/hr IV ASDIRECTED [facility] Stop: 09/25/19 18:16 Last Admin: 09/25/19 18:04 Dose: 999 mls/hr Ceftriaxone Sodium 1 gm/ (Sodium Chloride) 50 mls @ 100 mls/hr IV ONETIME ONE Stop: 09/26/19 04:29 Last Admin: 09/26/19 04:58 Dose: 100 mls/hr Ceftriaxone Sodium 2 gm/ (Sodium Chloride) 50 mls @ 100 mls/hr IV Q24H [facility] Last Admin: 09/27/19 16:19 Dose: 100 mls/hr Sodium Chloride (Normal Saline) 1,000 mls @ 125 mls/hr IV ASDIRECTED [facility] Last Admin: 09/26/19 02:49 Dose: 125 mls/hr Sodium Chloride (Normal Saline) 1,000 mls @ 75 mls/hr IV ASDIRECTED [facility] Last Admin: 09/27/19 22:12 Dose: 75 mls/hr Sodium Chloride (Normal Saline) 85 mls @ 3.5 mls/sec IV ASDIRECTED [facility] Last Admin: 09/27/19 10:27 Dose: 3.5 mls/sec Insulin Human Lispro (Humalog) 0 unit SUBCUT QIDACANDBED [facility]; Protocol Last Admin: 09/26/19 16:47 Dose: Not Given Iopamidol (Isovue-300 (61%)) 150 ml IV ONETIME ONE Stop: 09/27/19 09:58 Last Admin: 09/27/19 10:26 Dose: 150 ml Ketorolac Tromethamine (Toradol) 30 mg IVPUSH ONETIME ONE Stop: 09/26/19 16:06 Last Admin: 09/26/19 16:20 Dose: 30 mg Ondansetron HCl (Zofran) 4 mg IVPUSH ONETIME ONE Stop: 09/25/19 15:52 Last Admin: 09/25/19 16:12 Dose: 4 mg Phenazopyridine HCl (Urinary Pain Relief) 190 mg PO ONETIME ONE Stop: 09/25/19 16:17 Last Admin: 09/25/19 16:32 Dose: 190 mg Ropinirole HCl (Requip) 0.5 mg PO DAILY [facility] - Exam General: Reports: Alert, Oriented, Cooperative, No Acute Distress Lungs: Reports: Clear to Auscultation, Normal Respiratory Effort Cardiovascular: Reports: Regular Rate, Regular Rhythm, No Murmurs GI/Abdominal Exam: Soft, Non-Tender, No Organomegaly, No Distention
== END 2019-09-30 11:45 | disposition home or self-care (01) | DRG 872 ==
LOC: JP.ED 15:13 → JP.MS 17:09
PROVIDERS: ADMIT Internal Medicine; ATTEND Internal Medicine
DX: A41.51 Sepsis due to Escherichia coli [E. coli] (principal); N30.00 Acute cystitis without hematuria; Z68.43 Body mass index [BMI] 50.0-59.9, adult; E66.01 Morbid (severe) obesity due to excess calories; I10 Essential (primary) hypertension; E86.0 Dehydration; G47.30 Sleep apnea, unspecified; M19.90 Unspecified osteoarthritis, unspecified site; M54.2 Cervicalgia; G89.29 Other chronic pain; K21.9 Gastro-esophageal reflux disease without esophagitis; E11.9 Type 2 diabetes mellitus without complications; F32.9 Major depressive disorder, single episode, unspecified; Z79.82 Long term (current) use of aspirin; Z79.84 Long term (current) use of oral hypoglycemic drugs; Z79.899 Other long term (current) drug therapy
CPT/HCPCS: 36415; 71045; 74177; 80048; 80053; 81001; 82800; 82962; 83605; 85025; 85027; 87040; 87086; 87088; 87186; 96361; 96374; 96375; 99285-25; A9270-GY; J0696; J0744; J1170; J1815; J1885; J2405; J7030; J7050; J7120; Q9967

== ENCOUNTER 2022-01-16 13:53 | Emergency (ER) | payer MEDICAID ==
[2022-01-16] MEDS ORDERED: cefTRIAXone 1 GM in Sodium Chloride 0.9% 50 ML IV ONE (16:08)
[2022-01-16] MEDS ORDERED: Sodium Chloride 0.9% 10 ML Syringe FLUSH PRN (16:09)
[2022-01-16] MEDS ORDERED: Acetaminophen 500 MG Tab PO ONE (16:39)
[2022-01-16] MEDS ORDERED: Ibuprofen 400 MG Tab PO ONE (19:25)
[2022-01-16] MEDS ORDERED: Ondansetron 4 MG/2 ML SDV IVPUSH ONE (19:51)
[2022-01-16] MEDS ORDERED: Morphine 2 MG/ML SYRINGE IVPUSH ONE (19:54)
[2022-01-16 20:15] VITALS: BP 145/84; PULSE 104
== END 2022-01-16 20:45 | disposition home or self-care (01) ==
LOC: JP.ED 13:53
DX: N39.0 Urinary tract infection, site not specified (principal); I10 Essential (primary) hypertension; E11.42 Type 2 diabetes mellitus with diabetic polyneuropathy; K21.9 Gastro-esophageal reflux disease without esophagitis; G47.33 Obstructive sleep apnea (adult) (pediatric); E66.9 Obesity, unspecified; Z79.82 Long term (current) use of aspirin; Z79.84 Long term (current) use of oral hypoglycemic drugs; Z68.43 Body mass index [BMI] 50.0-59.9, adult; Z79.899 Other long term (current) drug therapy
CPT/HCPCS: 36415; 80048; 81001; 83605; 85025; 86140; 87040; 87086; 87088; 87186; 96365; 96375; 99283; A9270; J0696; J2270; J2405; J3490